=== PATIENT | female | born 1935 | race Caucasian/White ===

== ENCOUNTER 2019-07-26 15:17 | Outpatient (CLI) | payer MEDICARE, SELFPAY ==
[2019-07-26 15:35] LABS: Basophils Absolute Auto 0.05 K/mm3 (0.00-0.10); Basophils Percent Auto 0.7 % (0.0-1.0); Eosinophils Absolute Auto 0.09 K/mm3 (0.02-0.50); Eosinophils Percent Auto 1.2 % (1.0-6.0); Hematocrit 42.6 % (35.0-42.0); Immature Granulocyte Absolute 0.02 K/mm3 (0.00-0.00); Immature Granulocyte Percent A 0.3 % (0.0-0.0); Lymphocytes Absolute Auto 1.91 K/mm3 (1.10-4.50); Mean Corpuscular HGB Conc 32.9 g/dL (32.0-36.0); Mean Corpuscular Hemoglobin 28.7 pg (27.0-31.0); Mean Corpuscular Volume 87.5 fL (78.0-102.0); Mean Platelet Volume 9.9 fl (9.2-11.8); Monocytes Absolute Auto 0.94 K/mm3 (0.10-0.90); Monocytes Percent Auto 12.3 % (2.0-11.0); Neutrophils Absolute Auto 4.6 K/mm3 (1.7-7.2); Neutrophils Percent Auto 60.5 % (50.0-70.0); Platelet Count Result 242 K/mm3 (150-420); Red Blood Count 4.87 M/mm3 (4.20-5.40); Red Cell Distribution Width 12.4 % (11.6-14.4); White Blood Count 7.7 K/mm3 (4.8-10.8)
[2019-07-26 15:52] LABS: Hemoglobin A1C 5.9 % (<5.7)
[2019-07-26 16:24] LABS: Alanine Aminotransferase 29 U/L (14-59); Albumin Level 3.8 g/dL (3.4-5.0); Alkaline Phosphatase 73 U/L (46-116); Aspartate Amino Transferase 21 U/L (15-37); Bilirubin,Total 0.4 mg/dL (0.00-1.00); Blood Urea Nitrogen 15 mg/dL (7-18); Calcium 9.3 mg/dL (8.5-10.1); Carbon Dioxide 30 mmol/L (21-32); Chloride 105 mmol/L (98-108); Cholesterol 197 mg/dL (0-200); Estimated Glomerular Filt Rate 60; Glucose 92 mg/dL (70-99); HDL Direct 51 mg/dL (40-60); LDL Cholesterol Calculated 123 mg/dL (<130); Osmolality Calculated 298 mOsm/kg (285-295); Sodium 144 mmol/L (136-145); Total Protein 7.5 g/dL (6.4-8.2); Triglycerides 115 mg/dL (0-150)
[2019-07-26 16:30] LABS: Thyroid Stimulating Hormone Reflex 1.35 u/IU/mL (0.36-3.74)
== END 2019-07-26 15:18 | disposition home or self-care (01) ==
LOC: CHSLAB 15:23
PROVIDERS: PCP Family Medicine; Visit Provider Family Medicine
DX: E11.9 Type 2 diabetes mellitus without complications (principal); R30.0 Dysuria; N39.0 Urinary tract infection, site not specified
CPT/HCPCS: 36415; 80053; 80061; 83036; 84443; 85025; 87086

== ENCOUNTER 2019-09-07 16:53 | Emergency (ER) | payer MEDICARE, SELFPAY ==
[2019-09-07 17:16] VITALS: BP 165/95; PULSE 95; RESP 18; TEMP 36.2; O2SAT 100
--- NOTE | 2019-09-07 17:49 | ECG_ITS ---
Measurements Intervals [place] Rate: 73 P: 53 MA: 158 QRS: 19 QRSD: 90 T: 26 QT: 387 QTc: 429 Interpretive Statements SINUS RHYTHM ATRIAL PREMATURE COMPLEXES BORDERLINE ECG Electronically Signed On 09-08-2019 8:16:07 CDT by Morgan Garibay D.O.
--- NOTE | 2019-09-07 17:57 | ED.WEAKNESS ---
HPI - Weakness General Chief complaint: Weakness Stated complaint: weak cant keep eyes open Source: patient Mode of arrival: ambulatory Limitations: no limitations History of Present Illness HPI Narrative: 83 y.o. began feeling lightheaded while cleaning out her kitchen cupboards, just after she had been bending over. Her blood sugar was 95. She sat down. l Shortly thereafter she had a mild headache and felt like she was going to faint. This lasted for a minute or two. She had a piece of candy and came to the e.d. She's wondering if she could have an infection. Her blood sugars tend to swing when she doesn't eat or has an infection. At 11 AM her glucose was 119. She denies associated symptoms of sweating, nausea, SOB, chest/neck/arm pressure/pain. She gets symptoms similar to this if she doesn't eat. She was told almost 20 years ago when this occurred that they were caused by a low blood sugar. She is quite fastidious about recording her blood sugars throughout the day, and staying on an eating schedule. She was diagnosed with and treated for a UTI on 07/25. She never took the Cipro because of concerns about possible side effects. Her symptoms of burning in the AM with urinating resolved. They have periodically recurred but she attributes them to eating ice cream before bed and her blood sugar being high. She has no hx of CVA, Htn, CAD, cancer, DM Related Data Home Medications Medication Instructions Recorded Confirmed No Home Medications 09/07/19 09/07/19 Allergies Allergy/AdvReac Type Severity Reaction Status Date / Time aspirin Allergy Intermediate Unknown Verified 07/26/19 14:48 codeine Allergy Intermediate Unknown Verified 07/26/19 14:48 Penicillins Allergy Intermediate Unknown Verified 07/26/19 14:48 iodine Allergy Unknown Unknown Verified 07/26/19 14:48 Sulfonamides Allergy Intermediate Unknown Uncoded 07/26/19 14:33 SULFA Allergy Unknown Unknown Uncoded 07/26/19 14:33 Review of Systems Constitutional: Constitutional: Denies chills and Denies fever(s) ENT: Denies vertigo Cardiovascular: Cardiovascular: Denies rapid heart rate and Denies slow heart rate Respiratory: Respiratory: Denies cough Gastrointestinal: Gastrointestinal: Denies abdominal pain, Denies diarrhea and Denies vomiting Musculoskeletal: Musculoskeletal: Denies myalgias Integumentary/Breasts: Skin/Breast: Denies rash Comments: Bleeding from her left nipple with minimal trauma ever since she poked her nipple with a fork 1.5 months ago. Neurologic: Denies numbness PMFSH Past Medical History Medical History Type 2 diabetes mellitus Surgical History Surgical History History of appendectomy Hx of cholecystectomy Social History Social History (Updated 09/08/19 @ 06:34 by Edu Arzate MD) Social History: Lives alone. Has children and grandchildren nearby. Smoking status: Never smoker Exam Const: General: healthy appearing and no acute distress; No ill appearing Orientation/consciousness: patient oriented x3 HENMT: Head: normal to inspection Mouth: Yes moist mucous membranes Eyes: Conjunctivae: conjunctivae normal Neck: Neck: no lymphadenopathy Chest: Chest palpation & inspection: normal inspection of the chest Resp: Auscultation: clear to auscultation bilaterally Cardio: Rate: regular rate Rhythm: regular rhythm Heart sounds: no murmurs GI: GI Palp: Yes Soft to palpation, No Tenderness to palpation present (GI), No Guarding due to palpation present (GI) and No Palpable mass present Back/Spine/Pelvis: Back: no CVA tenderness Skin: General skin exam: normal color Extrem: General: normal to inspection Psych: Mental Status: mental status grossly normal Affect: normal affect Course Course Emergency Course: No episodes in the E.D. Vital Signs Vital signs: Vital Signs Temperature 36.
[2019-09-07 18:46] LABS: Hematocrit 44.1 % (35.0-42.0); Hemoglobin 14.8 g/dL (11.7-13.8); Mean Corpuscular HGB Conc 33.6 g/dL (32.0-36.0); Mean Corpuscular Hemoglobin 29.1 pg (27.0-31.0); Mean Corpuscular Volume 86.8 fL (78.0-102.0); Mean Platelet Volume 10.2 fl (9.2-11.8); Platelet Count Result 209 K/mm3 (150-420); Red Blood Count 5.08 M/mm3 (4.20-5.40); Red Cell Distribution Width 12.1 % (11.6-14.4); White Blood Count 7.3 K/mm3 (4.8-10.8)
[2019-09-07 18:57] LABS: Magnesium 2.1 mg/dL (1.8-2.4)
[2019-09-07 19:06] LABS: Alanine Aminotransferase 23 U/L (14-59); Albumin Level 3.7 g/dL (3.4-5.0); Alkaline Phosphatase 73 U/L (46-116); Anion Gap 11.1 mmol/L (7-16); Aspartate Amino Transferase 18 U/L (15-37); Bilirubin,Total 0.4 mg/dL (0.00-1.00); Blood Urea Nitrogen 16 mg/dL (7-18); Calcium 9.2 mg/dL (8.5-10.1); Carbon Dioxide 30 mmol/L (21-32); Chloride 104 mmol/L (98-108); Estimated CRCL calculation 41 ml/min; Estimated Glomerular Filt Rate 58; Glucose 137 mg/dL (70-99); Osmolality Calculated 295 mOsm/kg (285-295); Potassium 4.1 mmol/L (3.5-5.1); Sodium 141 mmol/L (136-145); Total Protein 7.7 g/dL (6.4-8.2); Troponin I < 0.02 ng/mL (0.00-0.056)
[2019-09-07 19:07] LABS: Add Urine Microscopic? YES; Appearance Urine Clear (Clear); Bilirubin Urine Negative (Negative); Blood Urine Negative (Negative); Color Urine Yellow (Yellow); Glucose Urine UA Negative (Negative); Ketones Urine Negative (Negative); Leukocyte Esterase Ur Trace (Negative); Nitrate Urine Negative (Negative); Protein Urine Negative (Negative); Urobilinogen Urine 0.2 mg/dL (0.2-1.0)
[2019-09-07 19:13] LABS: Bacteria Urine Trace /hpf; RBC Urine None seen /hpf (0-2); Squamous Epithelial Cell Urine None seen /hpf (Few); WBC Urine 0-3 /hpf (0-3)
[2019-09-07 19:14] LABS: Mucus Urine None seen /lpf
[2019-09-07 19:14] LABS: Thyroid Stimulating Hormone 1.78 uIU/mL (0.36-3.74)
[2019-09-07 19:15] LABS: BNP 22 pg/mL (0-100)
[2019-09-07 19:41] VITALS: BP 152/85; PULSE 85; RESP 18; O2SAT 98
== END 2019-09-07 19:48 | disposition home or self-care (01) ==
PROVIDERS: Emergency Provider Family Medicine; PCP Family Medicine
DX: R42 Dizziness and giddiness (principal); E11.9 Type 2 diabetes mellitus without complications
CPT/HCPCS: 36415; 80053; 81001; 83735; 83880; 84443; 84484; 85027; 93005; 99283; 99284

== ENCOUNTER 2019-09-10 08:48 | Outpatient (CLI) | payer MEDICARE, SELFPAY ==
--- NOTE | ~2019-09-10 | MM_ITS ---
EXAMINATION: MM screening bobby BI w monique HISTORY: Screening mammogram TECHNIQUE: Craniocaudal and mediolateral oblique 3-D tomosynthesis images were obtained and synthetic 2-D images were generated. CAD analysis was submitted and interpreted. COMPARISON: No prior mammogram is available for comparison at this institution. BREAST PARENCHYMAL COMPOSITION: The breasts are heterogeneously dense, which may obscure small masses . FINDINGS: Occasional benign calcifications. There is no evidence of suspicious mass, calcification, o r architectural distortion to suggest malignancy in either breast. There has been no suspicious inter [place] change. IMPRESSION: 1. No mammographic evidence of malignancy. 2. Recommend routine screening mammography in one year. BI-RADS Category 2: Benign finding(s). Reviewed, dictated and finalized at location A.
== END 2019-09-10 08:49 | disposition home or self-care (01) ==
LOC: CHSIMG 08:50
PROVIDERS: PCP Nurse Practitioner Family; Visit Provider Nurse Practitioner Family
DX: Z12.31 Encounter for screening mammogram for malignant neoplasm of breast (principal)
CPT/HCPCS: 77063; 77067

== ENCOUNTER 2019-10-12 09:02 | Emergency (ER) | payer MEDICARE, SELFPAY ==
[2019-10-12 09:14] VITALS: BP 162/95; PULSE 97; RESP 16; TEMP 36.6; O2SAT 98
[2019-10-12 09:15] LABS: Glucose Point of Care 121 (65-105)
--- NOTE | 2019-10-12 09:18 | ECG_ITS ---
Measurements Intervals [place] Rate: 84 P: 25 ME: 146 QRS: 14 QRSD: 87 T: 21 QT: 356 QTc: 423 Interpretive Statements SINUS RHYTHM FREQUENT ATRIAL PREMATURE COMPLEXES DELAYED PRECORDIAL R/S TRANSITION BASELINE ARTIFACT- V6 ABNORMAL ECG Electronically Signed On 10-13-2019 7:15:42 CDT by Morgan Garibay D.O.
[2019-10-12 09:30] VITALS: BP 163/91; PULSE 91
[2019-10-12 09:32] VITALS: BP 173/94; PULSE 102
[2019-10-12 10:04] LABS: Hematocrit 45.7 % (35.0-42.0); Hemoglobin 14.9 g/dL (11.7-13.8); Mean Corpuscular HGB Conc 32.6 g/dL (32.0-36.0); Mean Corpuscular Hemoglobin 28.8 pg (27.0-31.0); Mean Corpuscular Volume 88.2 fL (78.0-102.0); Mean Platelet Volume 10.7 fl (9.2-11.8); Platelet Count Result 218 K/mm3 (150-420); Red Blood Count 5.18 M/mm3 (4.20-5.40); Red Cell Distribution Width 12.5 % (11.6-14.4)
[2019-10-12 10:20] LABS: Add Urine Microscopic? YES; Appearance Urine Clear (Clear); Bilirubin Urine Negative (Negative); Blood Urine Negative (Negative); Color Urine Yellow (Yellow); Glucose Urine UA Negative (Negative); Ketones Urine Negative (Negative); Leukocyte Esterase Ur Trace (Negative); Nitrate Urine Negative (Negative); Protein Urine Negative (Negative); Urobilinogen Urine 0.2 mg/dL (0.2-1.0); pH Urine 5.5 (5.0-8.0)
[2019-10-12 10:25] LABS: Bacteria Urine Trace /hpf; RBC Urine 0-2 /hpf (0-2); Squamous Epithelial Cell Urine Rare /hpf (Few); WBC Urine 0-3 /hpf (0-3)
[2019-10-12 10:41] LABS: Alanine Aminotransferase 23 U/L (14-59); Albumin Level 3.8 g/dL (3.4-5.0); Alkaline Phosphatase 80 U/L (46-116); Anion Gap 12.1 mmol/L (7-16); Aspartate Amino Transferase 21 U/L (15-37); Bilirubin,Total 0.5 mg/dL (0.00-1.00); Blood Urea Nitrogen 17 mg/dL (7-18); Carbon Dioxide 29 mmol/L (21-32); Chloride 102 mmol/L (98-108); Estimated CRCL calculation 36 ml/min; Estimated Glomerular Filt Rate 60; Glucose 112 mg/dL (70-99); Osmolality Calculated 290 mOsm/kg (285-295); Potassium 4.1 mmol/L (3.5-5.1); Sodium 139 mmol/L (136-145); Total Protein 8.2 g/dL (6.4-8.2)
[2019-10-12 10:45] LABS: Troponin I < 0.02 ng/mL (0.00-0.056)
--- NOTE | 2019-10-12 11:01 | ED.GENADULT ---
HPI - General Adult General Chief complaint: Unspecified Stated complaint: high blood sugar Source: patient and family Mode of arrival: ambulatory Limitations: no limitations History of Present Illness HPI narrative: this is an 83-year-old female that presents with some dizziness non vertigo, with no sinus congestion or pressure no chest pain no shortness of breath no nausea vomiting or abdominal pain. The patient was outdoors doing some yd work and felt dizzy did not pass out and currently having some dizzy spells with some ambulating well with no dysuria no flank pain no fever chills. Onset (ago): hour(s) Radiation: non-radiation Severity: mild Pain Consistency: intermittent Relieving factors: none Exacerbating factors: none Associated symptoms: denies other symptoms Treatments prior to arrival: none Related Data Allergies Allergy/AdvReac Type Severity Reaction Status Date / Time aspirin Allergy Intermediate Unknown Verified 09/16/19 13:22 codeine Allergy Intermediate Unknown Verified 09/16/19 13:22 Penicillins Allergy Intermediate Unknown Verified 09/16/19 13:22 iodine Allergy Unknown Unknown Verified 09/16/19 13:22 Sulfonamides Allergy Intermediate Unknown Uncoded 09/16/19 13:22 SULFA Allergy Unknown Unknown Uncoded 09/16/19 13:22 Review of Systems Review of Systems: All systems reviewed & are unremarkable except as noted in HPI and below PMFSH Past Medical History Medical History BMI 28.0-28.9,adult Dysuria Eustachian tube dysfunction Type 2 diabetes mellitus Surgical History Surgical History History of appendectomy Hx of cholecystectomy Social History Social History Social History: Lives alone. Has children and grandchildren nearby. Smoking status: Never smoker Tobacco type: cigarettes Alcohol intake: never Substance use: never Substance use type: does not use Gender identity (if verbalized by the patient): Female Exam Const: General: no acute distress and alert Orientation/consciousness: patient oriented x3 HENMT: Head: normal to inspection and contusion Eyes: Conjunctivae: conjunctivae normal Pupils: Equal, round and reactive pupils present Neck: Neck: normal visual inspection and no lymphadenopathy Chest: Chest palpation & inspection: normal inspection of the chest and abnormal inspection of the chest Resp: Effort & Inspection: normal respiratory effort Auscultation: clear to auscultation bilaterally Cardio: Rate: regular rate Rhythm: abnormal rhythm GI: Percussion: Yes normal to percussion : General: Yes no CVA tenderness Back/Spine/Pelvis: Back: no CVA tenderness Skin: General skin exam: normal color Rashes: no rashes Extrem: General: normal to inspection Psych: Mental Status: mental status grossly normal Course Course Emergency Course: Patient currently stable dizziness has resolved patient his blood pressure is some elevated with a a elevated heart rate, explained that her labs were unremarkable that her EKG showed some premature supraventricular complexes and explained that she needs to start on beta-kelle and to follow-up with her primary care physician for possible cardiology referral. Vital Signs Vital signs: Vital Signs Temperature 36.6 C 10/12/19 09:14 Pulse Rate 97 10/12/19 09:14 Respiratory Rate 16 10/12/19 09:14 Blood Pressure 162/95 H 10/12/19 09:14 Pulse Oximetry 98 10/12/19 09:14 Temperature 36.6 C 10/12/19 09:14 Pulse Rate 102 H 10/12/19 09:32 Respiratory Rate 16 10/12/19 09:14 Blood Pressure 173/94 H 10/12/19 09:32 Pulse Oximetry 98 10/12/19 09:14 Medical Decision Making Vital Signs Vital Signs: Vital Signs Temperature 36.6 C 10/12/19 09:14 Pulse Rate 97 10/12/19 09:14 Respiratory Rate 16 10/12/19 09:14 Blood Pressure
[2019-10-12 11:07] VITALS: BP 156/77; PULSE 94; RESP 20; TEMP 36.8; O2SAT 98
[2019-10-12 11:12] VITALS: BP 160/77; PULSE 91; RESP 16; TEMP 36.6; O2SAT 98
== END 2019-10-12 11:17 | disposition home or self-care (01) ==
PROVIDERS: Emergency Provider Emergency Medicine; PCP Nurse Practitioner Family
DX: I49.8 Other specified cardiac arrhythmias (principal)
CPT/HCPCS: 36415; 80053; 81001; 84484; 85027; 93005; 99283; 99284

== ENCOUNTER 2019-11-08 08:59 | Outpatient (CLI) | payer MEDICARE, SELFPAY ==
--- NOTE | 2019-11-28 12:37 | WPDHOLTEREM ---
Holter/Event Monitor Holter/Event Monitor Date of procedure: 11/08/19 Procedure Type: 48 hour holter monitor Indications: PAC's Conclusion: 1. 48 hour holter monitor on 11/08/19. 2. Predominant rhythm is sinus rhythm. HR range 58-122 bpm; average HR 78 bpm. 3. There are 18,132 premature supraventricular complexes, 1,674 supraventricular coupletes, 5,709 supraventricular bigeminy and 12,557 supraventricular trigeminy. There are 428 short runs of atrial tachycardia, fastest at 138 bpm and longest lasting 9 beats. 4. There are 102 premature ventricular complexes and 1 ventricular couplet. No ventricular tachycardia. 5. No sinoatrial or atrioventricular blocks. No significant pauses greater than 2 seconds. 6. No symptoms available for correlation.
== END 2019-11-08 09:00 | disposition home or self-care (01) ==
PROVIDERS: PCP Nurse Practitioner Family; Visit Provider Internal Medicine Cardiovascular Disease
DX: I49.1 Atrial premature depolarization (principal)
CPT/HCPCS: 93225; 93226

== ENCOUNTER 2019-12-19 14:48 | Outpatient (CLI) | payer MEDICARE, SELFPAY ==
--- NOTE | 2019-12-19 14:57 | ECHO_ITS ---
Patient Info Name: Elizabeth Urbano Age: 83 years : 1935 Gender: Female Ht: 64 in Wt: 170 lbs BSA: 1.89 m2 HR: 95 bpm BP: 142 / 91 mmHg Technical Quality: Good Exam Date: 12/19/2019 3:10 PM Exam Location: [facility] Patient Status: Outpatient Admit Date: 12/19/2019 Staff Ordering Physician: Morgan Garibay DO Assistant County Engineer: Linh Rhoades RDCS Attending Provider: Morgan Garibay DO Referring Physician: Phoenix MORSE; Exam Type: CA echo doppler color flow Study Info Indications I49.1 - Atrial premature depolarization Complete two-dimensional, color flow and Doppler transthoracic echocardiogram is performed. Summary 1. Complete two-dimensional, color flow and Doppler transthoracic echocardiogram is performed. 2. Left ventricular chamber dimension is normal. 3. Ventricular septum is sigmoid shaped. No LVOT obstruction. 4. Left ventricular systolic function is normal, estimated at 60-65%. 5. The left ventricular diastolic function is grade I diastolic dysfunction. 6. E/e' 9 is minimally elevated. 7. Global longitudinal strain is abnormal at -15.5%. 8. There is mild mitral valve regurgitation. 9. There is mild to moderate tricuspid valve regurgitation. 10. No pulmonary hypertension, estimated pulmonary arterial systolic pressure is 35 mmHg. 11. There is trace pulmonic regurgitation. Left Ventricle E/e' 9 is minimally elevated. Global longitudinal strain is abnormal at -15.5%. Ventricular septum is sigmoid shaped. No LVOT obstruction. Left ventricular chamber dimension is normal. Left ventricular systolic function is normal, estimated at 60-65%. The left ventricular diastolic function is grade I diastolic dysfunction. Right Ventricle Right ventricular chamber dimension is normal. Right ventricular systolic function is normal. Left Atria Left atrial chamber dimension is normal. Right Atria Right atrial chamber dimension is normal. Aortic Valve The aortic valve is trileaflet. There is no aortic valve stenosis. There is no aortic valve regurgitation. Pulmonic Valve There is trace pulmonic regurgitation. Mitral Valve There is no mitral valve stenosis. There is mild mitral valve regurgitation. Tricuspid Valve There is mild to moderate tricuspid valve regurgitation. No pulmonary hypertension, estimated pulmonary arterial systolic pressure is 35 mmHg. Pericardium/Pleural There is no pericardial effusion. Inferior Vena Cava Normal inferior vena cava with >50% collapse upon inspiration consistent with normal right atrial pressure, 5 mmHg. Aorta The aortic root size at the sinus of Valsalva is normal. Left Ventricular Outflow Tract Name Value Normal LVOT 2D LVOT Diameter 1.9 cm LVOT Doppler LVOT Peak Gradient 6 mmHg LVOT Mean Gradient 3 mmHg LVOT VTI 24 cm LVOT VTI/AV VTI Ratio 0.9 LVOT Stroke Volume 71 ml LVOT CO 6.0 l/min LVOT CI 3.2 l/min/m2 P
== END 2019-12-19 14:49 | disposition home or self-care (01) ==
LOC: ANHCARD 14:49
PROVIDERS: PCP Nurse Practitioner Family; Visit Provider Internal Medicine Cardiovascular Disease
DX: I49.1 Atrial premature depolarization (principal); I34.0 Nonrheumatic mitral (valve) insufficiency; I36.1 Nonrheumatic tricuspid (valve) insufficiency
CPT/HCPCS: 93306

== ENCOUNTER 2020-09-18 09:44 | Emergency (ER) | payer MEDICARE, SELFPAY ==
--- NOTE | ~2020-09-18 | XR_ITS ---
EXAMINATION: XR chest 2V DATE: 09/18/2020 10:47 INDICATION: Chest TECHNIQUE: Frontal and lateral views of the chest are obtained COMPARISON: 04/30/2018 FINDINGS: The lungs are free of acute opacities. There is no pleural effusion or pneumothorax. The ca rdiomediastinal silhouette is normal. There is moderate thoracic spondylosis. IMPRESSION: 1. No acute cardiopulmonary abnormality. Reviewed, dictated and finalized at location B.
[2020-09-18 09:45] VITALS: BP 160/79; PULSE 95; RESP 15; TEMP 37.2; O2SAT 95
--- NOTE | 2020-09-18 10:03 | ECG_ITS ---
Measurements Intervals [place] Rate: 87 P: 47 [place]: 157 QRS: 67 QRSD: 90 T: 8 QT: 360 QTc: 435 Interpretive Statements SINUS RHYTHM ATRIAL COUPLET AND ATRIAL PREMATURE COMPLEXES DELAYED PRECORDIAL R/S TRANSITION BORDERLINE ST-T WAVE ABNORMALITY- INFERIOR LEADS BASELINE WANDER- I, III, AVR, AVL, AVF BORDERLINE ECG Electronically Signed On 09-18-2020 13:10:11 CDT by Morgan Garibay D.O.
[2020-09-18 10:27] LABS: Basophils Absolute Auto 0.04 K/mm3 (0.00-0.10); Basophils Percent Auto 0.6 % (0.0-1.0); Eosinophils Absolute Auto 0.09 K/mm3 (0.02-0.50); Eosinophils Percent Auto 1.5 % (1.0-6.0); Hematocrit 41.8 % (35.0-42.0); Hemoglobin 14.1 g/dL (11.7-13.8); Immature Granulocyte Absolute 0.02 K/mm3 (0.00-0.00); Immature Granulocyte Percent A 0.3 % (0.0-0.0); Lymphocytes Absolute Auto 1.16 K/mm3 (1.10-4.50); Lymphocytes Percent Auto 18.8 % (18.0-42.0); Mean Corpuscular HGB Conc 33.7 g/dL (32.0-36.0); Mean Corpuscular Hemoglobin 29.2 pg (27.0-31.0); Mean Corpuscular Volume 86.5 fL (78.0-102.0); Mean Platelet Volume 9.8 fl (9.2-11.8); Monocytes Percent Auto 9.7 % (2.0-11.0); Neutrophils Absolute Auto 4.3 K/mm3 (1.7-7.2); Neutrophils Percent Auto 69.1 % (50.0-70.0); Platelet Count Result 223 K/mm3 (150-420); Red Blood Count 4.83 M/mm3 (4.20-5.40); Red Cell Distribution Width 12.2 % (11.6-14.4); White Blood Count 6.2 K/mm3 (4.8-10.8)
[2020-09-18 10:41] LABS: D Dimer 0.27 mg/L (0.19-0.50)
[2020-09-18 11:14] LABS: Albumin Level 3.6 g/dL (3.4-5.0); Alkaline Phosphatase 78 U/L (46-116); Anion Gap 10 mmol/L (8-16); Aspartate Amino Transferase 17 U/L (15-37); Bilirubin,Total 0.4 mg/dL (0.00-1.00); Calcium 8.9 mg/dL (8.5-10.1); Carbon Dioxide 28 mmol/L (21-32); Chloride 105 mmol/L (98-108); Estimated Glomerular Filt Rate > 60; Glucose 146 mg/dL (70-99); Potassium 3.7 mmol/L (3.5-5.1); Sodium 143 mmol/L (136-145); Total Protein 7.6 g/dL (6.4-8.2)
[2020-09-18 12:32] LABS: Alanine Aminotransferase 25 U/L (14-59); Blood Urea Nitrogen 17 mg/dL (7-18); Osmolality Calculated 300 mOsm/kg (285-295)
[2020-09-18 12:46] LABS: Add Urine Microscopic? NO; Appearance Urine Clear (Clear); Bilirubin Urine Negative (Negative); Blood Urine Negative (Negative); Color Urine Light Yellow (Yellow); Glucose Urine UA Negative (Negative); Ketones Urine Negative (Negative); Leukocyte Esterase Ur Negative LEU/UL (Negative); Nitrate Urine Negative (Negative); Protein Urine Negative (Negative); Specific Grav Ur <= 1.005 (1.010-1.020); Urobilinogen Urine 0.2 mg/dL (0.2-1.0)
[2020-09-18 12:48] LABS: NT Pro B Type Natriuretic Pept 113 pg/mL (0-450)
--- NOTE | 2020-09-18 12:57 | ED.CHESTPAIN ---
HPI - Chest Pain General Source: patient Mode of arrival: ambulatory Limitations: no limitations History of Present Illness HPI narrative: Patient comes in after having brief palpitations at home. She noticed her heart beating after she drank down a bottle of ice water from the refrigerator. She never had any shortness of breath or chest pain, or other symptoms. The palpitations lasted no longer than 5 minutes, and resolved. She has never had anything that sounds like angina, or any chest pain. She has not had shortness of breath with exercise. MD complaint: other (palpitations ) Pertinent past history: other (none significant) Onset (ago): minute(s) Onset: during rest Severity: mild Quality: other (no tightness, no SOB, no pain, no discomfort. ) Relieving factors: other (spontaneous relief) Exacerbating factors: nothing Associated symptoms: other (no other symptoms) Related Data Home Medications Medication Instructions Recorded Confirmed No Home Medications 09/18/20 09/18/20 Allergies Allergy/AdvReac Type Severity Reaction Status Date / Time Penicillins Allergy Intermediate Hives Verified 09/18/20 10:29 iodine Allergy Unknown Hives Verified 09/18/20 10:29 Sulfa (Sulfonamide Allergy Unknown Verified 09/18/20 10:29 Antibiotics) aspirin AdvReac Intermediate Gastrointestinal Verified 09/18/20 10:29 Upset codeine AdvReac Intermediate Nausea Verified 09/18/20 10:29 Review of Systems Review of Systems: ROS unobtainable: Yes unobtainable due to medical condition Constitutional: Constitutional: Reports no additional constitutional complaints Eyes: Eyes: Reports no additional eye complaints ENT: Reports system reviewed and no additional complaints, except as documented Cardiovascular: Cardiovascular: Reports no additional cardiovascular complaints Respiratory: Respiratory: Reports no additional respiratory complaints Gastrointestinal: Gastrointestinal: Reports no additional gastrointestinal complaints Genitourinary: Genitourinary: Reports no additional female genitourinary complaints Musculoskeletal: Musculoskeletal: Reports no additional musculoskeletal complaints Integumentary/Breasts: Comments: states she has had recurrent bleeding from left nipple for the last year, and a small wound on the nipple there. Neurologic: Reports system reviewed and no additional complaints, except as documented Psychiatric: Psychiatric: Reports no additional psychiatric complaints Endocrine: Endocrine: Reports no additional endocrine complaints Hematologic/Lymphatic: Hematologic/Lymphatic: Reports no additional hematologic/lymphatic complaints Allergic/Immunologic: Allergic/Immunologic: Reports no additional allergic/immunologic complaints PMFSH Past Medical History Medical History BMI 28.0-28.9,adult Dysuria Eustachian tube dysfunction Type 2 diabetes mellitus Surgical History Surgical History History of appendectomy Hx of cholecystectomy Family History Family History (Updated 09/18/20 @ 13:35 by Alvaro Perkins MD) Other Family history non-contributory Social History Social History Social History: Lives alone. Has children and grandchildren nearby. Smoking status: Never smoker Tobacco type: cigarettes Alcohol intake: never Substance use: never Substance use type: does not use Gender identity (if verbalized by the patient): Female Exam Const: General: cooperative, healthy appearing, no acute distress, alert and awake Nutritional Appearance: average body habitus Orientation/consciousness: oriented to person Limitations: no limitations HENMT: Head: normal to inspection and atraumatic Ears: hearing grossly normal bilaterally and external ears normal General nose exam: Normal external nose present Face and sinus: normal facia
[2020-09-18 13:21] VITALS: BP 126/75; PULSE 70; O2SAT 96
== END 2020-09-18 13:25 | disposition home or self-care (01) ==
PROVIDERS: Emergency Provider Emergency Medicine; PCP Nurse Practitioner Family
DX: R00.2 Palpitations (principal); N63.20 Unspecified lump in the left breast, unspecified quadrant
CPT/HCPCS: 36415; 71046; 80053; 81003; 83735; 83880; 84484; 85025; 85380; 93005; 99283; 99284

== ENCOUNTER 2020-10-01 09:31 | Outpatient (CLI) | payer MEDICARE, SELFPAY ==
--- NOTE | ~2020-10-01 | MMUS_ITS ---
CORRECTED RE[place] [facility] [place] EXAMINATION: MM diagnostic bobby BI, US breast LT limited HISTORY: Left nipple discharge TECHNIQUE: Craniocaudal, mediolateral, and mediolateral oblique 3-D tomosynthesis images of the breasts were performed and synthetic 2-D images were generated. CAD analysis was submitted and interpreted. High resolution limited left breast ultrasound was performed. COMPARISON: 09/10/2019 BREAST PARENCHYMAL COMPOSITION: The breasts are heterogeneously dense, which may obscure small masses. FINDINGS: MAMMOGRAPHIC FINDINGS: Left breast: There is an 8 mm round, obscured, equal density mass in the subareolar aspect of the left breast. Right breast: There is no evidence of suspicious mass, calcification, or architectural distortion to suggest malignancy. There has been no suspicious interval change. ULTRASOUND: There is a 7 mm round, isoechoic mass in the subareolar aspect of the left breast with posterior acoustic enhancement and no internal vascularity. IMPRESSION: 1. Subareolar left breast mass. 2. Ultrasound-guided biopsy is recommended. BI-RADS category 4, suspicious findings. Reviewed, dictated and finalized at location A. MTDD IMPRESSION: 1. Subareolar left breast mass. 2. Ultrasound-guided biopsy is recommended. BI-RADS category 4, suspicious findings.
== END 2020-10-01 09:32 | disposition home or self-care (01) ==
LOC: CHSIMG 09:36
PROVIDERS: PCP Nurse Practitioner Family; Visit Provider Nurse Practitioner Family
DX: N63.20 Unspecified lump in the left breast, unspecified quadrant (principal); N64.52 Nipple discharge
CPT/HCPCS: 76642; 77062; 77066; G0279

== ENCOUNTER 2020-10-07 13:33 | Emergency (ER) | payer MEDICARE, SELFPAY ==
[2020-10-07 13:55] VITALS: BP 152/102; PULSE 72; RESP 16; TEMP 36.6; O2SAT 98
[2020-10-07 14:00] LABS: Glucose Point of Care 110 mg/dl (65-105)
--- NOTE | 2020-10-07 15:01 | ED.WEAKNESS ---
HPI - Weakness General Chief complaint: Recheck/Abnormal Lab/Rx Stated complaint: low blood sugar issues Time Seen by Provider: 10/07/20 14:30 Source: patient Mode of arrival: ambulatory Limitations: no limitations History of Present Illness HPI Narrative: Elizabeth come in after presenting to the hospital for a breast biopsy. She was forced to wait for quite some time for the procedure in a fasting state. During that time, she did not feel well, and felt she was getting weak and hypoglycemic. She was developing a presyncopal state. She has had issues with fasting hypoglycemia multiple times in the past. Her blood glucose was found to be 58 and she was taken to ER for evaluation. She was given something to eat, and a few minutes later her glucose was 110 after some pudding. The total time of weakness was about 15-20 minutes which spontaneously resolved after eating pudding. MD Complaint: generalized weakness Onset (ago): minute(s) Duration: now resolved Location: generalized Severity: mild Relieving factors: evening Exacerbating factors: other (fasting state) Related Data Home Medications Medication Instructions Recorded Confirmed No Home Medications 09/18/20 10/07/20 Allergies Allergy/AdvReac Type Severity Reaction Status Date / Time Penicillins Allergy Intermediate Hives Verified 09/23/20 10:51 iodine Allergy Unknown Hives Verified 09/23/20 10:51 Sulfa (Sulfonamide Allergy Unknown Verified 09/23/20 10:51 Antibiotics) aspirin AdvReac Intermediate Gastrointestinal Verified 09/23/20 10:51 Upset codeine AdvReac Intermediate Nausea Verified 09/23/20 10:51 Review of Systems Constitutional: Constitutional: Reports no additional constitutional complaints Eyes: Eyes: Reports no additional eye complaints ENT: Reports system reviewed and no additional complaints, except as documented Cardiovascular: Cardiovascular: Reports no additional cardiovascular complaints Respiratory: Respiratory: Reports no additional respiratory complaints Gastrointestinal: Gastrointestinal: Reports no additional gastrointestinal complaints Genitourinary: Genitourinary: Reports no additional female genitourinary complaints Musculoskeletal: Musculoskeletal: Reports no additional musculoskeletal complaints Integumentary/Breasts: Skin/Breast: Reports system reviewed and no additional complaints, except as docu Neurologic: Reports system reviewed and no additional complaints, except as documented Psychiatric: Psychiatric: Reports no additional psychiatric complaints Endocrine: Endocrine: Reports no additional endocrine complaints Hematologic/Lymphatic: Hematologic/Lymphatic: Reports no additional hematologic/lymphatic complaints Allergic/Immunologic: Allergic/Immunologic: Reports no additional allergic/immunologic complaints PMFSH Past Medical History Medical History BMI 28.0-28.9,adult Dysuria Eustachian tube dysfunction Type 2 diabetes mellitus Surgical History Surgical History History of appendectomy Hx of cholecystectomy Family History Family History Other Family history non-contributory Social History Social History Social History: Lives alone. Has children and grandchildren nearby. Smoking status: Never smoker Tobacco type: cigarettes Alcohol intake: never Substance use: never Substance use type: does not use Gender identity (if verbalized by the patient): Female Exam Const: General: no acute distress Orientation/consciousness: patient oriented x3 HENMT: Head: normal to inspection Ears: external ears normal and TM's normal bilaterally General nose exam: Normal external nose present Mouth: Yes Normal oral and palatal mucosa present Throat: posterior oropharynx normal Eyes: Con
[2020-10-07 15:08] LABS: Glucose Point of Care 118 mg/dl (65-105)
[2020-10-07 15:11] LABS: Add Urine Microscopic? YES; Appearance Urine Clear (Clear); Bilirubin Urine Negative (Negative); Blood Urine Negative (Negative); Color Urine Light Yellow (Yellow); Glucose Urine UA Negative (Negative); Ketones Urine Negative (Negative); Leukocyte Esterase Ur Trace LEU/UL (Negative); Nitrate Urine Negative (Negative); Protein Urine Negative (Negative); Specific Grav Ur <= 1.005 (1.010-1.020); Urobilinogen Urine 0.2 mg/dL (0.2-1.0); pH Urine 5.5 (5.0-8.0)
[2020-10-07 15:16] LABS: RBC Urine 0-2 /hpf (0-2); Squamous Epithelial Cell Urine Few /hpf (Few)
[2020-10-07 15:17] LABS: Bacteria Urine 1+ /hpf
[2020-10-07 15:21] VITALS: PULSE 70; RESP 14; O2SAT 100
== END 2020-10-07 15:22 | disposition home or self-care (01) ==
PROVIDERS: Emergency Provider Emergency Medicine; PCP Nurse Practitioner Family
DX: E11.649 Type 2 diabetes mellitus with hypoglycemia without coma (principal)
CPT/HCPCS: 81001; 82948; 87086; 99282; 99283

== ENCOUNTER 2020-10-21 13:08 | Outpatient (CLI) | payer MEDICARE, SELFPAY ==
--- NOTE | ~2020-10-21 | MMUS_ITS ---
US breast biopsy LT w image, MM post biopsy diagnostic LT EXAMINATION: US GUIDED NEEDLE BIOPSY WITH V ACUUM ASSISTANCE DATE: 10/21/2020 14:54 CDT INDICATION: Left breast mass seen on prior examination. Ultrasound-guided core biopsy is requested t o evaluate for malignancy. TECHNIQUE AND FINDINGS: The risks and potential benefits of the procedure were discussed with the patient, and written inform ed consent was obtained. After sterile preparation of the left breast, 1% lidocaine was utilized for local anesthesia. 1% lidocaine with epinephrine was used for deep anesthesia. A 10G vacuum-assisted biopsy gun needle was advanced through to the outer edge of the region of inter est from a subareolar approach utilizing sonographic guidance. A total of three tissue core samples were obtained through the lesion. An Inrad tissue marker clip was then placed at the biopsy site. He mostasis was achieved. The patient tolerated procedure well and there was no evidence of immediate complication. The patien t was given verbal instructions partly is from the department. Left breast mammograms to document ti ssue marker clip placement. The tissue samples were submitted to surgical pathology for histologic an alysis. IMPRESSION: 1. Successful ultrasound-guided vacuum-assisted biopsy of left breast mass with tissue marker placem ent. Please refer to pathology report for histologic analysis. Reviewed, dictated and finalized at location A. IMPRESSION: 1. Successful ultrasound-guided vacuum-assisted biopsy of left breast mass wit h tissue marker placement. Please refer to pathology report for histologic anal ysis.
== END 2020-10-21 13:09 | disposition home or self-care (01) ==
LOC: CHSIMG 13:10
PROVIDERS: PCP Nurse Practitioner Family; Visit Provider Nurse Practitioner Family
DX: C50.112 Malignant neoplasm of central portion of left female breast (principal); Z17.0 Estrogen receptor positive status [ER+]
CPT/HCPCS: 19083; 77065; 88305; 88342; A4648

== ENCOUNTER 2021-01-01 11:50 | Outpatient (CLI) | payer MEDICARE, SELFPAY ==
[2021-01-01 12:45] LABS: Alanine Aminotransferase 33 U/L (14-59); Albumin Level 3.6 g/dL (3.4-5.0); Alkaline Phosphatase 79 U/L (46-116); Anion Gap 7 mmol/L (8-16); Aspartate Amino Transferase 27 U/L (15-37); Bilirubin,Total 0.7 mg/dL (0.00-1.00); Blood Urea Nitrogen 14 mg/dL (7-18); Carbon Dioxide 31 mmol/L (21-32); Chloride 106 mmol/L (98-108); Estimated Glomerular Filt Rate > 60; Glucose 111 mg/dL (70-99); Osmolality Calculated 299 mOsm/kg (285-295); Potassium 4.3 mmol/L (3.5-5.1); Sodium 144 mmol/L (136-145); Total Protein 7.3 g/dL (6.4-8.2)
== END 2021-01-01 11:51 | disposition home or self-care (01) ==
LOC: CHSLAB 11:54
PROVIDERS: PCP Nurse Practitioner Family
DX: C50.912 Malignant neoplasm of unspecified site of left female breast (principal); Z17.0 Estrogen receptor positive status [ER+]
CPT/HCPCS: 36415; 80053

== ENCOUNTER 2021-01-24 10:24 | Outpatient (CLI) | payer MEDICARE, SELFPAY ==
[2021-01-24 12:16] LABS: SARS-CoV-2 RNA PCR Negative (Negative)
== END 2021-01-24 10:25 | disposition home or self-care (01) ==
LOC: CHSLAB 10:29
PROVIDERS: PCP Nurse Practitioner Family; Visit Provider Nurse Practitioner Family
DX: Z20.822 Contact with and (suspected) exposure to COVID-19 (principal)
CPT/HCPCS: C9803; U0003; U0005

== ENCOUNTER 2021-04-30 12:22 | Outpatient (CLI) | payer MEDICARE, SELFPAY ==
--- NOTE | ~2021-04-30 | DEXA_ITS ---
Bone Density Report Name: SANDY ESPINOZA Age: 85 Sex: Female Ethnicity: White Date of : 1935 Indication: postmenopausal; screening for osteoporosis; height loss; cancer; Referring Provider: JOSE, CHARLOTTE Goff Study: Bone densitometry was performed. Exam Date: April 30, 2021 Accession number: [id number] Bone Density: Region BMD T-score Z-score Classification AP Spine(L1, L2, L4) 1.006 -0.3 2.6 Normal Femoral Neck (Left) 0.411 -3.9 -1.5 Osteoporosis Total Hip (Left) 0.667 -2.3 0.0 Osteopenia Femoral Neck (Right) 0.424 -3.8 -1.3 Osteoporosis Total Hip (Right) 0.636 -2.5 -0.2 Osteoporosis Femoral Neck Mean 0.417 -3.9 -1.4 Osteoporosis Total Hip Mean 0.652 -2.4 -0.1 Osteopenia World Health Organization criteria for BMD impression classify patients as: Normal (T-score at or above -1.0), Osteopenia (T-score between -1.0 and -2.5), or Osteoporosis (T-score at or below -2.5). 10-year Fracture Risk: FRAX not reported because: Some T-score for Spine Total or Hip Total or Femoral Neck at or below -2.5 Clinical Information Provided by Patient: Has the following medical conditions: Cancer Patient maximum height was 65 Menopause Age: 46 No regular weight bearing exercise Onset of menses at age 16 Impression: The patient has osteoporosis, based on the Left Femoral Neck T-score. Discussion: INCREASED RISK OF FRACTURE. BONE DENSITY IS UNDESIRABLY LOW AT ONE OR MORE SKELETAL SITES, CONSISTENT WITH POSTMENOPAUSAL OSTEOPOROSIS. This patient's lowest T-score meets the World Health Organization's (WHO) criteria for osteoporosis at one or more sites (T-score -2.5 or below). In untreated patients, the risk of osteoporotic fracture increases approximately two-fold for each 1.0 SD decrease in T-score. Low bone density is not the only risk factor for fracture; also consider factors such as patient's age, frailty or poor health, risk of falling, risk of injury, previous osteoporotic fracture, family history of osteoporosis, cigarette smoking, low body weight, etc. Not everyone with low bone mineral density has osteoporosis; osteomalacia and other metabolic bone disorders should also be considered. Patients who have osteoporosis should be evaluated for specific diseases and conditions (secondary causes) that may cause or contribute to bone loss. The [place] [employer]ocr[employer] (AACE) and National Osteoporosis Foundation (NOF) recommend pharmacologic intervention for all postmenopausal women whose T-score is in this range. The patient should follow a healthful lifestyle (good nutrition with adequate calcium and vitamin D, and appropriate weight-bearing exercise). Follow-Up: Consider a repeat BMD and Vertebral Fracture Assessment (VFA) exam in 2 years or sooner if medically
== END 2021-04-30 12:23 | disposition home or self-care (01) ==
LOC: CHSIMG 12:25
PROVIDERS: PCP Nurse Practitioner Family; Visit Provider Internal Medicine Medical Oncology
DX: C50.012 Malignant neoplasm of nipple and areola, left female breast (principal); Z17.0 Estrogen receptor positive status [ER+]; Z13.820 Encounter for screening for osteoporosis; Z79.811 Long term (current) use of aromatase inhibitors
CPT/HCPCS: 77080

== ENCOUNTER 2021-06-28 16:53 | Emergency (ER) | payer MEDICARE, SELFPAY ==
--- NOTE | ~2021-06-28 | XR_ITS ---
EXAMINATION: XR chest 1V portable Exam Date/Time: 06/28/2021 17:45 CDT CLINICAL HISTORY: syncope episode today. hx of LT breast cancer Comparison: 09/18/2020 RESULT: Lines, tubes, and devices: None. Lungs and pleura: Clear. Cardiomediastinal silhouette: Stable cardiomediastinal silhouette. Other: No acute osseous or upper abdominal finding. IMPRESSION: No acute cardiopulmonary process. Reviewed, dictated and finalized at location K.
--- NOTE | ~2021-06-28 | CT_ITS ---
EXAMINATION: CT brain wo con DATE: 06/28/2021 17:56 INDICATION: Syncopal episode, fall, confusion. TECHNIQUE: Computed tomography (CT) of the head was performed without intravenous contrast. The dose- length product was 605.33 mGy-cm. COMPARISON: 04/30/2018 FINDINGS: No acute intracranial hemorrhage or extra-axial fluid collection. No hydrocephalus, mass, or herniation. No acute ischemic infarct. Unremarkable dural venous sinus attenuation. No acute osseous abnormality. Small retention cyst or polyp in the sphenoid sinus, otherwise the aerated spaces are clear. Mild atrophy and chronic white matter change. Bilateral basal ganglia calcification. Atherosclerotic intracranial arterial calcification. IMPRESSION: No acute intracranial process. Reviewed, dictated and finalized at location K.
--- NOTE | ~2021-06-28 | CT_ITS ---
EXAMINATION: CT cervical spine wo con DATE: 06/28/2021 17:56 INDICATION: Syncopal episode today, fall, confusion. TECHNIQUE: Computed tomography (CT) of the cervical spine was performed without intravenous contrast. Automated exposure control and iterative reconstruction technique were employed. The dose-length pro duct was 159.62 mGy-cm. COMPARISON: None FINDINGS: Counting reference: Craniocervical junction. 7 cervical type vertebral bodies. Anatomic Variants: None. Alignment: Alignment is anatomic. Craniocervical junction: Moderate degenerative change. Osseous structures/fracture: No evidence of a lytic or blastic process in the visualized spine. N o evidence of acute or chronic fracture. Cervical soft tissues: The paraspinal soft tissues planes are maintained. 3.7 cm left inferior thy roid lobe mass. Apical pleural thickening/scarring. Degenerative changes: Moderate degenerative disc disease at C6-7, where there is moderate central can al stenosis and severe right neural foraminal narrowing. IMPRESSION: No acute fracture or traumatic malalignment in the cervical spine. 3.7 cm left thyroid mass, recommen d outpatient thyroid ultrasound for further evaluation. Reviewed, dictated and finalized at location K. IMPRESSION: No acute fracture or traumatic malalignment in the cervical spine. 3.7 cm left thyroid mass, recommend outpatient thyroid ultrasound for further evaluation.
[2021-06-28 17:10] VITALS: BP 131/60; PULSE 69; RESP 16; TEMP 36.6; O2SAT 100
--- NOTE | 2021-06-28 17:11 | ECG_ITS ---
Measurements Intervals [place] Rate: 61 P: 43 MT: 149 QRS: 29 QRSD: 92 T: 45 QT: 404 QTc: 409 Interpretive Statements SINUS RHYTHM WITH OCCASIONAL SUPRAVENTRICULAR PREMATURE COMPLEXES ABNORMAL ECG COMPARED TO ECG 09/18/2020 10:08:24 NO SIGNIFICANT CHANGES Electronically Signed On 06-29-2021 17:49:42 CDT by Carlos Alvarado M.D.
[2021-06-28 17:31] LABS: Base Excess ABG 1.9 mmol/L (0-2); HCO3 ABG 25.3 mmol/L (23-29); Oxygen Content ABG 19.7 %vol (16.0-22.0); Oxygen Saturation ABG 95.3 % (95-97); Oxyhemoglobin 94.7 % (94-100); PCO2 ABG 35.8 mmHg (35-45); PO2 ABG 70.9 mmHg (75-85); Total Hemoglobin 14.8 g/dL (12.0-18.0); pH ABG 7.47 (7.35-7.45)
[2021-06-28 17:32] LABS: Device ROOM AIR; Modified Allen's Test Pass; Site Drawn RIGHT RADIAL
--- NOTE | 2021-06-28 17:32 | PC.NURSE ---
daughter has arrived and states patient has a a known cognative decline and confusion per baseline. patient has had several episodes of emesis today and wasnt feeling good yesterday either during her visit. patient has history of TIA's and recent lumpectomy to the left breast.
[2021-06-28 17:34] LABS: Basophils Absolute Auto 0.03 K/mm3 (0.00-0.10); Basophils Percent Auto 0.3 % (0.0-1.0); Eosinophils Absolute Auto 0.01 K/mm3 (0.02-0.50); Eosinophils Percent Auto 0.1 % (1.0-6.0); Hematocrit 43.1 % (35.0-42.0); Hemoglobin 14.2 g/dL (11.7-13.8); Immature Granulocyte Absolute 0.04 K/mm3 (0.00-0.00); Immature Granulocyte Percent A 0.4 % (0.0-0.0); Lymphocytes Absolute Auto 0.98 K/mm3 (1.10-4.50); Mean Corpuscular HGB Conc 32.9 g/dL (32.0-36.0); Mean Corpuscular Hemoglobin 28.9 pg (27.0-31.0); Mean Corpuscular Volume 87.8 fL (78.0-102.0); Mean Platelet Volume 10.5 fl (9.2-11.8); Monocytes Absolute Auto 0.99 K/mm3 (0.10-0.90); Monocytes Percent Auto 9.1 % (2.0-11.0); Neutrophils Absolute Auto 8.8 K/mm3 (1.7-7.2); Neutrophils Percent Auto 81.1 % (50.0-70.0); Platelet Count Result 242 K/mm3 (150-420); Red Blood Count 4.91 M/mm3 (4.20-5.40); Red Cell Distribution Width 12.4 % (11.6-14.4); White Blood Count 10.9 K/mm3 (4.8-10.8)
[2021-06-28 17:50] LABS: Alanine Aminotransferase 28 U/L (14-59); Albumin Level 3.6 g/dL (3.4-5.0); Alkaline Phosphatase 83 U/L (46-116); Anion Gap 8 mmol/L (8-16); Aspartate Amino Transferase 27 U/L (15-37); Bilirubin,Total 0.6 mg/dL (0.00-1.00); Blood Urea Nitrogen 15 mg/dL (7-18); Calcium 9.1 mg/dL (8.5-10.1); Carbon Dioxide 28 mmol/L (21-32); Chloride 103 mmol/L (98-108); Estimated Glomerular Filt Rate > 60; Glucose 130 mg/dL (70-99); Osmolality Calculated 290 mOsm/kg (285-295); Potassium 3.6 mmol/L (3.5-5.1); Salicylate 0.7 mg/dL (2.8-20.0); Sodium 139 mmol/L (136-145); Total Protein 7.5 g/dL (6.4-8.2); Troponin I 5.9 ng/L (0.00-60.4)
[2021-06-28 17:54] LABS: Lactic Acid Reflex 1.7 mmol/L (0.4-2.0)
[2021-06-28] MEDS: SODIUM CHLORIDE 0.9% IV 500 ML 999 ML IV CONT (17:54)
[2021-06-28 17:55] LABS: Ethanol < 3 mg/dL (0-6)
[2021-06-28 17:56] LABS: Acetaminophen < 2 ug/mL (10-30)
[2021-06-28] MEDS: ONDANSETRON INJ 4 MG/2 ML VIAL IV PUSH (18:14)
[2021-06-28] MEDS: PANTOPRAZOLE SODIUM IV 40 MG VIAL IV PUSH (18:14)
--- NOTE | 2021-06-28 19:05 | ED.AMS ---
HPI - Altered Mental Status General Chief Complaint: Altered Mental Status Stated Complaint: AMB Time Seen by Provider: 06/28/21 16:55 Source: patient, family, EMS and RN notes reviewed Mode of arrival: EMS Limitations: no limitations History of Present Illness complaint: confusion (pt has the dementia.) Onset (ago): hour(s) (4) Timing confirmed by: family member Severity: mild Consistency of symptoms: unknown (pt has known dementia and was at status in the ED.) Associated symptoms: nausea/vomiting Related Data Allergies Allergy/AdvReac Type Severity Reaction Status Date / Time Penicillins Allergy Intermediate Hives Verified 11/24/20 11:13 iodine Allergy Unknown Hives Verified 11/24/20 11:13 Sulfa (Sulfonamide Allergy Unknown Verified 11/24/20 11:13 Antibiotics) aspirin AdvReac Intermediate Gastrointestinal Verified 11/24/20 11:13 Upset codeine AdvReac Intermediate Nausea Verified 11/24/20 11:13 Review of Systems Review of Systems: All systems reviewed & are unremarkable except as noted in HPI and below PMFSH Past Medical History Medical History (Updated 06/28/21 @ 19:32 by Wan Lopez MD) BMI 28.0-28.9,adult Dysuria Eustachian tube dysfunction Type 2 diabetes mellitus Surgical History Surgical History History of appendectomy Hx of cholecystectomy Family History Family History Other Family history non-contributory Social History Social History Social History: Lives alone. Has children and grandchildren nearby. Smoking status: Former smoker Tobacco type: cigarettes Alcohol intake: never Substance use: never Substance use type: does not use Gender identity (if verbalized by the patient): Female Spiritual care concerns: No Exam Const: General: no acute distress and alert Limitations: other limitations (pt has the dementia but was cooperative and pleasant in the ED.) HENMT: Head: normal to inspection Ears: external ears normal, TM's normal bilaterally and EAC's normal General nose exam: Normal external nose present and Normal nares present Face and sinus: normal facial exam Mouth: Yes moist mucous membranes Eyes: Conjunctivae: conjunctivae normal Pupils: Equal, round and reactive pupils present EOM: EOMs intact bilaterally Neck: Neck: normal visual inspection and no lymphadenopathy Chest: Chest palpation & inspection: normal inspection of the chest Resp: Effort & Inspection: normal respiratory effort Auscultation: clear to auscultation bilaterally Cardio: Rate: regular rate Rhythm: regular rhythm GI: GI Palp: Yes Soft to palpation and No Tenderness to palpation present (GI) Auscultation: normal bowel sounds : General: Yes bladder normal to palpation and Yes no CVA tenderness Back/Spine/Pelvis: Back: no CVA tenderness Skin: General skin exam: normal color Rashes: no rashes Neuro: General: patient oriented x3, moves all extremities, no meningeal signs, no focal motor deficits and CN's II-XI intact bilaterally Extrem: General: normal to inspection and no pedal edema Psych: Appearance: grossly normal and well kempt Mental Status: mental status grossly normal Attitude: cooperative Thought content: Yes other (known dementia.) Course Course Emergency Course: Pt was stable in the ED. no acute GI loss. Reevaluation(s) Reevaluation #1: VSS Date: 06/28/21 Time: 17:51 Vital Signs Vital signs: Vital Signs Temperature 36.6 C 06/28/21 17:10 Pulse Rate 69 06/28/21 17:10 Respiratory Rate 16 06/28/21 17:10 Blood Pressure 131/60 06/28/21 17:10 Pulse Oximetry 100 06/28/21 17:10 Temperature 36.6 C 06/28/21 17:10 Pulse Rate 69 06/28/21 17:10 Respiratory Rate 16 06/28/21 17:10 Blood Pressure 131/60 06/28/21 17:10 Pulse Oximetry 100 06/28/21 17:10
[2021-06-28 19:18] LABS: Appearance Urine Clear (Clear); Bilirubin Urine Negative (Negative); Color Urine Yellow (Yellow); Glucose Urine UA Negative (Negative); Ketones Urine Negative (Negative); Leukocyte Esterase Ur Trace LEU/UL (Negative); Nitrate Urine Negative (Negative); Protein Urine Trace (Negative); Specific Grav Ur >= 1.030 (1.010-1.020); Urobilinogen Urine 0.2 mg/dL (0.2-1.0)
[2021-06-28 19:24] LABS: Add Urine Microscopic? YES; Bacteria Urine 2+ /hpf; Blood Urine Trace-Intact (Negative); Squamous Epithelial Cell Urine Rare /hpf (Few); WBC Urine 16-20 /hpf (0-3)
[2021-06-28 19:26] LABS: Amphetamine Screen Urine Negative (Negative); Barbiturate Screen Urine Negative (Negative); Benzodiazepines Screen Urine Negative (Negative); Cannabinoid Screen Urine Negative (Negative); Cocaine Screen Urine Negative (Negative); Methadone Screen Urine Negative (Negative); Opiate Screen Urine Negative (Negative); Phencyclidine Screen Urine Negative (Negative)
[2021-06-28 20:30] VITALS: BP 139/76; PULSE 68; RESP 18; TEMP 36.8; O2SAT 97
== END 2021-06-28 20:40 | disposition home or self-care (01) ==
PROVIDERS: Emergency Provider Emergency Medicine; PCP Nurse Practitioner Family
DX: K52.9 Noninfective gastroenteritis and colitis, unspecified (principal); R41.82 Altered mental status, unspecified; N39.0 Urinary tract infection, site not specified; Z87.891 Personal history of nicotine dependence
CPT/HCPCS: 36415; 36600; 70450; 71045; 72125; 80053; 80307; 81001; 82805; 83605; 84484; 85025; 87086; 93005; 96361; 96365; 96375; 99284; C9113; J0696; J2405; J7040

== ENCOUNTER 2021-08-17 12:05 | Emergency (ER) | payer MEDICARE, SELFPAY ==
--- NOTE | ~2021-08-17 | CT_ITS ---
EXAMINATION: CT brain wo con DATE: 08/17/2021 13:02 INDICATION: Status post fall. TECHNIQUE: Computed tomography (CT) of the head was performed without intravenous contrast. The dose- length product was 529.67 mGy-cm. Automated exposure control and iterative reconstruction technique w ere employed. COMPARISON: CT dated 06/28/2021 FINDINGS: Brain parenchymal volume is normal for age. There are are bilateral basal ganglia calcifica tions. There are scattered mild periventricular and subcortical white matter changes, most likely rel ated to small vessel ischemic disease (microangiopathy). There is intracranial atherosclerosis. No ve ntriculomegaly or midline shift. Paranasal sinuses and mastoids are pneumatized. No acute intracrania l hemorrhage, infarction, mass or mass effect. No depressed skull fractures. IMPRESSION: 1. No acute intracranial abnormality. 2: Chronic age-related findings. Reviewed, dictated and finalized at location A.
--- NOTE | ~2021-08-17 | CT_ITS ---
EXAMINATION: CT cervical spine wo con DATE: 08/17/2021 13:02 INDICATION: Loss of balance and nausea post fall with head injury TECHNIQUE: Computed tomography (CT) of the cervical spine was performed without intravenous contrast. Automated exposure control and iterative reconstruction technique were employed. The dose-length pro duct was 218.66 mGy-cm. COMPARISON: 06/28/2021 FINDINGS: Alignment is normal. Moderate osteoarthritis at the atlantoaxial articulation. Vertebral body heights are normal. No fracture. Moderate disc height loss at C5-C6, C6-C7 and T2-T3 and mild disc height lo ss at C4-C5.. Mild mucosal thickening the left sphenoid and bilateral ethmoid sinuses. 3.5 cm left th yroid mass. Cervical soft tissues are otherwise unremarkable. Mild biapical pleural-parenchymal scarr ing. The following disc levels are specifically discussed: C2-C3: The disc does not extend beyond the endplate margin. There is no uncovertebral joint osteoarth ritis. There is mild left and severe right facet joint osteoarthritis. There is minimal neural forami nal stenosis. There is no central canal stenosis. C3-C4: Disc is bulging. There is mild bilateral uncovertebral joint osteoarthritis. There is mild lef t and severe right facet joint osteoarthritis. There is mild neural foraminal stenosis. There is mild central canal stenosis. C4-C5: The disc does not extend beyond the endplate margin. There is mild bilateral uncovertebral rosaura nt osteoarthritis. There is mild right and severe left facet joint osteoarthritis. There is mild left neural foraminal stenosis. There is no central canal stenosis. C5-C6: Small posterior disc osteophyte complex. There is mild left and severe right uncovertebral rosaura nt osteoarthritis. There is mild to moderate right and severe left facet joint osteoarthritis. There is mild bilateral neural foraminal stenosis. There is mild central canal stenosis. C6-C7: Small posterior disc osteophyte complex. There is severe bilateral uncovertebral joint osteoar thritis. There is mild left and mild to moderate right facet joint osteoarthritis. There is mild left and mild to moderate right neural foraminal stenosis. There is mild central canal stenosis. C7-T1: The disc does not extend beyond the endplate margin. There is no uncovertebral joint osteoarth ritis. There is mild bilateral facet joint osteoarthritis. There is no neural foraminal stenosis. The re is no central canal stenosis. IMPRESSION: 1. Mild to moderate cervical spondylosis. No acute osseous abnormality. 2. 3.5 cm left thyroid mass. Consider thyroid ultrasound for risk stratification. Reviewed, dictated and finalized at location B. IMPRESSION: 1. Mild to moderate cervical spondylosis. No acute osseous abnormality. 2. 3.5 cm left thyroid mass. Consider thyroid ultrasound for risk stratificatio n.
[2021-08-17 12:10] VITALS: BP 169/84; PULSE 100; RESP 20; TEMP 36.4; O2SAT 100
--- NOTE | 2021-08-17 12:26 | ED.HEATRA ---
HPI - Head Injury General Chief complaint: Head Injury Stated complaint: FELL AND HIT WALL Time Seen by Provider: 08/17/21 12:29 Source: patient Mode of arrival: ambulatory Limitations: no limitations History of Present Illness HPI Narrative: 85-year-old female with no significant past medical history and not on any medications, fell forwards on her face while trying to plug in the vacuum tank car cleaner and presents to the ER with -- abrasions over her forehead and nose bridge -- bleeding from both nostrils -- Nausea without any vomiting no loss of consciousness. no headache. No neck pain. no other injuries noted. Patient was ambulatory at the scene and on presentation to ER Patient is not on any antithrombotics or anticoagulants Complaint: other Onset (ago): minute(s) ( 20 minutes prior to arrival) Mechanism of Injury: other ( fell forwards while trying to plug in her vacuum tank car cleaner) Place: home Loss of Consciousness: no Location of injury: face Severity: mild Radiation: none Other Injuries: none Associated symptoms: denies other symptoms Related Data Home Medications Medication Instructions Recorded Confirmed No Home Medications 08/17/21 08/17/21 Allergies Allergy/AdvReac Type Severity Reaction Status Date / Time Penicillins Allergy Intermediate Hives Verified 08/17/21 12:23 iodine Allergy Unknown Hives Verified 08/17/21 12:23 Sulfa (Sulfonamide Allergy Unknown Verified 08/17/21 12:23 Antibiotics) aspirin AdvReac Intermediate Gastrointestinal Verified 08/17/21 12:23 Upset codeine AdvReac Intermediate Nausea Verified 08/17/21 12:23 Review of Systems Review of Systems: All systems reviewed & are unremarkable except as noted in HPI and below Constitutional: Constitutional: Reports as per HPI and Reports no additional constitutional complaints Eyes: Eyes: Reports as per HPI and Reports no additional eye complaints ENT: Reports epistaxis Cardiovascular: Cardiovascular: Reports as per HPI and Reports no additional cardiovascular complaints Respiratory: Respiratory: Reports as per HPI and Reports no additional respiratory complaints Gastrointestinal: Gastrointestinal: Reports as per HPI and Reports no additional gastrointestinal complaints Genitourinary: Genitourinary: Reports no additional female genitourinary complaints and Reports as per HPI Musculoskeletal: Musculoskeletal: Reports no additional musculoskeletal complaints Comments: right knee pain Integumentary/Breasts: Comments: abrasions over her forehead and nose bridge Neurologic: Reports system reviewed and no additional complaints, except as documented and Reports as per HPI Psychiatric: Psychiatric: Reports no additional psychiatric complaints and Reports as per HPI Endocrine: Endocrine: Reports no additional endocrine complaints and Reports as per HPI Hematologic/Lymphatic: Hematologic/Lymphatic: Reports no additional hematologic/lymphatic complaints and Reports as per HPI Allergic/Immunologic: Allergic/Immunologic: Reports no additional allergic/immunologic complaints and Reports as per HPI PMFSH Past Medical History Medical History (Updated 08/17/21 @ 13:47 by Vrenon Mckeon MD) BMI 28.0-28.9,adult Dysuria Eustachian tube dysfunction Type 2 diabetes mellitus Surgical History Surgical History History of appendectomy Hx of cholecystectomy Family History Family History Other Family history non-contributory Social History Social History Social History: Lives alone. Has children and grandchildren nearby. Smoking status: Former smoker Tobacco type: cigarettes Alcohol intake: never Substance use: never Substance use type: does not use Gender identity (if verbalized by the patient): Female Spiritual care concerns: No
[2021-08-17 13:12] LABS: Add Urine Microscopic? YES; Appearance Urine Clear (Clear); Bilirubin Urine Negative (Negative); Blood Urine Negative (Negative); Color Urine Light Yellow (Yellow); Glucose Urine UA Negative (Negative); Ketones Urine Negative (Negative); Leukocyte Esterase Ur Trace (Negative); Nitrate Urine Negative (Negative); Protein Urine Negative (Negative); Urobilinogen Urine 0.2 mg/dL (0.2-1.0); pH Urine 5.5 (5.0-8.0)
[2021-08-17 13:17] LABS: Bacteria Urine Trace /hpf; RBC Urine None seen /hpf (0-2); Squamous Epithelial Cell Urine Few /hpf (Few); WBC Urine 0-3 /hpf (0-3)
[2021-08-17 13:18] LABS: Basophils Absolute Auto 0.05 K/mm3 (0.00-0.10); Basophils Percent Auto 0.7 % (0.0-1.0); Eosinophils Absolute Auto 0.09 K/mm3 (0.02-0.50); Eosinophils Percent Auto 1.2 % (1.0-6.0); Hemoglobin 14.4 g/dL (11.7-13.8); Immature Granulocyte Absolute 0.02 K/mm3 (0.00-0.00); Immature Granulocyte Percent A 0.3 % (0.0-0.0); Lymphocytes Absolute Auto 1.52 K/mm3 (1.10-4.50); Mean Corpuscular HGB Conc 32.7 g/dL (32.0-36.0); Mean Corpuscular Hemoglobin 28.7 pg (27.0-31.0); Mean Corpuscular Volume 87.6 fL (78.0-102.0); Mean Platelet Volume 10.4 fl (9.2-11.8); Monocytes Absolute Auto 0.66 K/mm3 (0.10-0.90); Monocytes Percent Auto 9.1 % (2.0-11.0); Neutrophils Absolute Auto 4.9 K/mm3 (1.7-7.2); Neutrophils Percent Auto 67.7 % (50.0-70.0); Platelet Count Result 221 K/mm3 (150-420); Red Blood Count 5.02 M/mm3 (4.20-5.40); Red Cell Distribution Width 12.1 % (11.6-14.4); White Blood Count 7.2 K/mm3 (4.8-10.8)
[2021-08-17 13:35] LABS: Partial Thromboplastin Time 29.2 SEC (23.90-30.70); Prothrombin Time 10.9 Seconds (9.50-12.10)
[2021-08-17 13:37] LABS: Alanine Aminotransferase 18 U/L (14-59); Albumin Level 3.6 g/dL (3.4-5.0); Alkaline Phosphatase 95 U/L (46-116); Anion Gap 4 mmol/L (8-16); Aspartate Amino Transferase 16 U/L (15-37); Bilirubin,Total 0.5 mg/dL (0.00-1.00); Blood Urea Nitrogen 14 mg/dL (7-18); Calcium 9.5 mg/dL (8.5-10.1); Carbon Dioxide 31 mmol/L (21-32); Chloride 104 mmol/L (98-108); Estimated CRCL calculation 40 ml/min; Estimated Glomerular Filt Rate > 60; Glucose 101 mg/dL (70-99); Osmolality Calculated 288 mOsm/kg (285-295); Potassium 4.5 mmol/L (3.5-5.1); Sodium 139 mmol/L (136-145); Total Protein 7.7 g/dL (6.4-8.2)
[2021-08-17 13:52] VITALS: BP 153/73; PULSE 68; RESP 18; TEMP 36.6; O2SAT 98
== END 2021-08-17 13:56 | disposition home or self-care (01) ==
PROVIDERS: Emergency Provider Internal Medicine Critical Care Medicine; PCP Nurse Practitioner Family
DX: R22.1 Localized swelling, mass and lump, neck (principal); S09.90XA Unspecified injury of head, initial encounter; S00.81XA Abrasion of other part of head, initial encounter; W19.XXXA Unspecified fall, initial encounter; E11.9 Type 2 diabetes mellitus without complications; Z87.891 Personal history of nicotine dependence
CPT/HCPCS: 36415; 70450; 72125; 80053; 81001; 85025; 85610; 85730; 99284

== ENCOUNTER 2021-10-09 16:26 | Emergency (ER) | payer MEDICARE, SELFPAY ==
[2021-10-09 16:41] VITALS: BP 144/73; PULSE 90; RESP 18; TEMP 36.1; O2SAT 98
--- NOTE | 2021-10-09 16:57 | ECG_ITS ---
Measurements Intervals [place] Rate: 71 P: 29 [place]: 154 QRS: 25 QRSD: 89 T: 31 QT: 397 QTc: 432 Interpretive Statements SINUS RHYTHM CONSIDER ANTERIOR INFARCT, AGE INDETERMINATE BORDERLINE ST-T WAVE ABNORMALITY- INFERIOR LEADS BASELINE ARTIFACT- I, III, AVR, AVL, AVF ABNORMAL ECG Electronically Signed On 10-09-2021 17:18:32 CDT by Morgan Garibay D.O.
--- NOTE | 2021-10-09 17:08 | ED.GENADULT ---
HPI - General Adult General Chief complaint: Weakness Stated complaint: feeling faint earlier History of Present Illness HPI narrative: The patient is an 85-year-old woman who has felt lightheaded and nauseous today and wanted noon. She had a near syncopal episode this afternoon and felt very weak. Her main complaint now is nausea as her lightheadedness symptom is resolved. She is diabetic but her Accu-Cheks have been in the 90s today. No other major comorbidities. No chest pain or abdominal pain. No fevers or chills or diaphoresis or cough rhinorrhea nasal congestion. No motor or sensory deficits. Related Data Allergies Allergy/AdvReac Type Severity Reaction Status Date / Time Penicillins Allergy Intermediate Hives Verified 10/09/21 17:44 iodine Allergy Unknown Hives Verified 10/09/21 17:44 Sulfa (Sulfonamide Allergy Unknown Verified 10/09/21 17:44 Antibiotics) aspirin AdvReac Intermediate Gastrointestinal Verified 10/09/21 17:44 Upset codeine AdvReac Intermediate Nausea Verified 10/09/21 17:44 Review of Systems Review of Systems: All systems reviewed & are unremarkable except as noted in HPI and below Constitutional: Constitutional: Reports no additional constitutional complaints, Denies anorexia, Denies body ache(s), Denies chills, Denies excessive sweating, Reports fatigue, Denies fever(s), Denies frequent falls, Denies headache(s), Reports malaise and Denies poor appetite Eyes: Eyes: Reports no additional eye complaints, Denies blurry vision, Denies change in vision, Denies irritation, Denies itchy eyes and Denies photophobia ENT: Reports system reviewed and no additional complaints, except as documented, Reports Normal hearing present, Denies change in voice, Denies dysphagia, Denies vertigo, Reports dizziness, Denies ear discharge, Denies headache(s), Denies hearing loss, Denies hoarseness, Denies nasal congestion, Denies neck pain, Denies sinus pressure, Denies sore throat and Denies throat swelling Cardiovascular: Cardiovascular: Reports no additional cardiovascular complaints, Denies chest pain, Denies syncope, Denies rapid heart rate, Denies irregular heart rhythm, Denies leg edema, Denies dyspnea and Denies slow heart rate Respiratory: Respiratory: Reports no additional respiratory complaints, Denies cough, Denies dyspnea, Denies stridor and Denies wheezing Gastrointestinal: Gastrointestinal: Reports no additional gastrointestinal complaints, Denies abdominal pain, Denies melena, Denies hematochezia, Denies dysphagia, Denies diarrhea, Reports nausea and Denies vomiting Genitourinary: Genitourinary: Denies hematuria, Denies urinary frequency, Denies dysuria, Denies flank pain and Denies urinary urgency Musculoskeletal: Musculoskeletal: Reports no additional musculoskeletal complaints, Denies abnormal gait, Denies back pain, Denies myalgias, Denies arthralgias, Denies joint swelling, Denies limited range of motion, Denies muscle cramps, Denies muscle weakness, Denies neck pain and Denies numbness Integumentary/Breasts: Skin/Breast: Reports system reviewed and no additional complaints, except as docu, Denies breast pain, Denies change in pigmentation, Denies pruritus, Denies erythema and Denies wounds Neurologic: Reports system reviewed and no additional complaints, except as documented, Reports Normal hearing present, Denies Abnormal speech present, Denies abnormal gait, Denies confusion, Denies vertigo, Reports dizziness, Denies syncope, Denies frequent falls, Denies headache(s), Denies focal weakness, Denies numbness and Denies paresthesias Psychiatric: Psychiatric: Reports no additional psychiatric complaints and Denies confusion Endocrine: Endocrine: Reports no additional endocrine complaints, Denies cold intolerance, Denies excessive sweating, Denies fatigue and Denies heat intolerance Hematologic/Lymphatic: Hematologic/Lymphatic: Reports no additional hematologic/lymphatic complaints, Denies easy bleeding and David
[2021-10-09 17:19] LABS: Basophils Absolute Auto 0.04 K/mm3 (0.00-0.10); Basophils Percent Auto 0.5 % (0.0-1.0); Eosinophils Absolute Auto 0.01 K/mm3 (0.02-0.50); Eosinophils Percent Auto 0.1 % (1.0-6.0); Hematocrit 41.9 % (35.0-42.0); Hemoglobin 13.8 g/dL (11.7-13.8); Immature Granulocyte Absolute 0.02 K/mm3 (0.00-0.00); Immature Granulocyte Percent A 0.3 % (0.0-0.0); Lymphocytes Absolute Auto 0.99 K/mm3 (1.10-4.50); Lymphocytes Percent Auto 12.6 % (18.0-42.0); Mean Corpuscular HGB Conc 32.9 g/dL (32.0-36.0); Mean Platelet Volume 10.5 fl (9.2-11.8); Monocytes Absolute Auto 0.65 K/mm3 (0.10-0.90); Monocytes Percent Auto 8.3 % (2.0-11.0); Neutrophils Absolute Auto 6.1 K/mm3 (1.7-7.2); Neutrophils Percent Auto 78.2 % (50.0-70.0); Platelet Count Result 225 K/mm3 (150-420); Red Blood Count 4.76 M/mm3 (4.20-5.40); Red Cell Distribution Width 12.3 % (11.6-14.4); White Blood Count 7.8 K/mm3 (4.8-10.8)
[2021-10-09 17:38] LABS: Alanine Aminotransferase 18 U/L (14-59); Albumin Level 3.6 g/dL (3.4-5.0); Alkaline Phosphatase 90 U/L (46-116); Anion Gap 7 mmol/L (8-16); Aspartate Amino Transferase 15 U/L (15-37); Bilirubin,Total 0.6 mg/dL (0.00-1.00); Blood Urea Nitrogen 14 mg/dL (7-18); Calcium 8.8 mg/dL (8.5-10.1); Carbon Dioxide 27 mmol/L (21-32); Chloride 105 mmol/L (98-108); Estimated Glomerular Filt Rate 60; Glucose 124 mg/dL (70-99); Osmolality Calculated 289 mOsm/kg (285-295); Potassium 3.6 mmol/L (3.5-5.1); Sodium 139 mmol/L (136-145); Total Protein 7.5 g/dL (6.4-8.2)
[2021-10-09 17:44] LABS: Troponin I 5.5 ng/L (0.00-60.4)
[2021-10-09] MEDS: SODIUM CHLORIDE 0.9% IV 1,000 ML 999 ML IV CONT (17:45)
[2021-10-09] MEDS: METOCLOPRAMIDE HCL INJ 10 MG/2 ML VIAL IV PUSH (17:45)
[2021-10-09] MEDS: ONDANSETRON INJ 4 MG/2 ML VIAL IV PUSH (17:45)
[2021-10-09 17:54] LABS: Bilirubin Urine Negative (Negative); Color Urine Light Yellow (Yellow); Glucose Urine UA Negative (Negative); Ketones Urine Negative (Negative); Leukocyte Esterase Ur Trace LEU/UL (Negative); Nitrate Urine Negative (Negative); Protein Urine Negative (Negative); Specific Grav Ur >= 1.030 (1.010-1.020); Urobilinogen Urine 0.2 mg/dL (0.2-1.0); pH Urine 5.5 (5.0-8.0)
[2021-10-09 17:56] LABS: SARS-CoV-2 RNA PCR Negative (Negative)
[2021-10-09 18:03] LABS: Add Urine Microscopic? YES; Appearance Urine Slightly Cloudy (Clear); Bacteria Urine 1+ /hpf; Blood Urine Trace-lysed (Negative); Mucus Urine Heavy /lpf; RBC Urine 21-50 /hpf (0-2); Squamous Epithelial Cell Urine Moderate /hpf (Few); WBC Urine 0-3 /hpf (0-3)
[2021-10-09 19:05] VITALS: BP 144/74; PULSE 71
[2021-10-09 19:06] VITALS: BP 137/71; BP 140/78; PULSE 68; PULSE 75
[2021-10-09 19:36] VITALS: BP 152/86; PULSE 82; RESP 17; TEMP 36.6; O2SAT 97
== END 2021-10-09 19:48 | disposition home or self-care (01) ==
PROVIDERS: Emergency Provider Emergency Medicine; PCP Nurse Practitioner Family
DX: R11.0 Nausea (principal); R53.1 Weakness; Z20.822 Contact with and (suspected) exposure to COVID-19; E11.9 Type 2 diabetes mellitus without complications; Z87.891 Personal history of nicotine dependence
CPT/HCPCS: 36415; 80053; 81001; 84484; 85025; 93005; 96361; 96374; 96375; 99284; C9803; J2405; J2765; J7030; U0003; U0005

== ENCOUNTER 2023-02-06 11:17 | Outpatient (CLI) | payer MEDICARE, SELFPAY ==
[2023-02-06 11:37] LABS: Basophils Absolute Auto 0.05 K/mm3 (0.00-0.10); Basophils Percent Auto 0.8 % (0.0-1.0); Eosinophils Absolute Auto 0.09 K/mm3 (0.02-0.50); Eosinophils Percent Auto 1.4 % (1.0-6.0); Hematocrit 44.4 % (35.0-42.0); Hemoglobin 14.2 g/dL (11.7-13.8); Immature Granulocyte Absolute 0.02 K/mm3 (0.00-0.00); Immature Granulocyte Percent A 0.3 % (0.0-0.0); Lymphocytes Absolute Auto 1.66 K/mm3 (1.10-4.50); Lymphocytes Percent Auto 25.5 % (18.0-42.0); Mean Corpuscular Hemoglobin 28.6 pg (27.0-31.0); Mean Corpuscular Volume 89.3 fL (78.0-102.0); Mean Platelet Volume 9.7 fl (9.2-11.8); Monocytes Absolute Auto 0.74 K/mm3 (0.10-0.90); Monocytes Percent Auto 11.3 % (2.0-11.0); Neutrophils Percent Auto 60.7 % (50.0-70.0); Platelet Count Result 229 K/mm3 (150-420); Red Blood Count 4.97 M/mm3 (4.20-5.40); Red Cell Distribution Width 12.3 % (11.6-14.4); White Blood Count 6.5 K/mm3 (4.8-10.8)
[2023-02-06 11:39] LABS: Appearance Urine Clear (Clear); Bilirubin Urine Negative (Negative); Blood Urine Negative (Negative); Color Urine Yellow (Yellow); Glucose Urine UA Negative (Negative); Ketones Urine Negative (Negative); Leukocyte Esterase Ur Trace LEU/UL (Negative); Nitrate Urine Negative (Negative); Protein Urine Negative (Negative); Specific Grav Ur >= 1.030 (1.010-1.020); Urobilinogen Urine 0.2 mg/dL (0.2-1.0); pH Urine 5.5 (5.0-8.0)
[2023-02-06 11:44] LABS: Add Urine Microscopic? YES; RBC Urine 0-2 /hpf (0-2)
[2023-02-06 11:45] LABS: Bacteria Urine Trace /hpf; Squamous Epithelial Cell Urine Few /hpf (Few); WBC Urine 0-3 /hpf (0-3)
[2023-02-06 11:46] LABS: Hemoglobin A1C 5.8 % (<5.7)
[2023-02-06 11:47] LABS: Mucus Urine Moderate /lpf
[2023-02-06 12:35] LABS: Alanine Aminotransferase 23 U/L (14-59); Albumin Level 3.7 g/dL (3.4-5.0); Alkaline Phosphatase 90 U/L (46-116); Anion Gap 5 mmol/L (8-16); Aspartate Amino Transferase 18 U/L (15-37); Bilirubin,Total 0.5 mg/dL (0.00-1.00); Blood Urea Nitrogen 17 mg/dL (7-18); Calcium 9.1 mg/dL (8.5-10.1); Carbon Dioxide 33 mmol/L (21-32); Chloride 106 mmol/L (98-108); Estimated Glomerular Filt Rate 54; Free T4 Free Thyroxine 1.12 ng/dL (0.76-1.46); Glucose 106 mg/dL (70-99); Iron 52 ug/dL (50-170); Magnesium 2.2 mg/dL (1.8-2.4); NT Pro B Type Natriuretic Pept 93 pg/mL (0-450); Osmolality Calculated 299 mOsm/kg (285-295); Sodium 144 mmol/L (136-145); Thyroid Stimulating Hormone 1.83 uIU/mL (0.36-3.74); Total Protein 8.3 g/dL (6.4-8.2); Vitamin B12 281 pg/mL (193-986)
[2023-02-10 11:29] LABS: Vitamin D 25 Hydroxy 16 ng/mL (30-100)
== END 2023-02-06 11:18 | disposition home or self-care (01) ==
LOC: CHSLAB 11:20
PROVIDERS: PCP Nurse Practitioner Family; Visit Provider Nurse Practitioner Family
DX: E11.9 Type 2 diabetes mellitus without complications (principal); R41.0 Disorientation, unspecified; Z79.899 Other long term (current) drug therapy; R60.9 Edema, unspecified; R06.00 Dyspnea, unspecified
CPT/HCPCS: 36415; 80053; 81001; 82306; 82607; 83036; 83540; 83735; 83880; 84439; 84443; 85025

== ENCOUNTER 2023-02-23 08:33 | Outpatient (CLI) | payer MEDICARE, SELFPAY ==
--- NOTE | ~2023-02-23 | MR_ITS ---
MRI of the brain Clinical History: Memory loss Technique: Axial and sagittal T1-weighted images were acquired. These were followed by axial T2-weigh migue, diffusion weighted, gradient, and FLAIR images. Findings: There is no acute infarct, internal hemorrhage, or mass lesion. There are moderate to sever e chronic microvascular ischemic changes throughout the periventricular white matter bilaterally. Ventricles and subarachnoid spaces are unremarkable. Orbits are unremarkable. Paranasal sinuses and m astoid air cells are clear. Major intracranial flow voids are intact. Sagittal midline structures are intact. IMPRESSION: No intracranial hemorrhage, mass lesion, or acute infarct. Moderate to severe chronic microvascular ischemic change. Reviewed, dictated and finalized at location M. L ENGINEERING PROFESSOR
== END 2023-02-23 08:34 | disposition home or self-care (01) ==
LOC: CHSIMG 08:35
PROVIDERS: PCP Nurse Practitioner Family; Visit Provider Nurse Practitioner Family
DX: R41.0 Disorientation, unspecified (principal)
CPT/HCPCS: 70551

== ENCOUNTER 2023-11-09 09:23 | Outpatient (CLI) | payer MEDICARE, SELFPAY ==
--- NOTE | ~2023-11-09 | XR_ITS ---
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 The cardiomediastinal silhouette is within normal limits. There are no pleural effusions. There is no pneumothorax suspected. IMPRESSION: 1: NO ACUTE CARDIOPULMONARY DISEASE. Reviewed, dictated and finalized at location B.
== END 2023-11-09 09:24 | disposition home or self-care (01) ==
LOC: CHSIMG 09:25
PROVIDERS: PCP Family Medicine; Visit Provider Family Medicine
DX: A15.0 Tuberculosis of lung (principal)
CPT/HCPCS: 71046

== ENCOUNTER 2024-10-02 15:09 | Emergency (ER) | payer MEDICARE, OTHER, SELFPAY ==
[2024-10-02 15:10] VITALS: BP 142/66; PULSE 60; RESP 18; TEMP 36.4; O2SAT 99
--- OUTSIDE RECORDS SUMMARY | 2024-10-02 15:11 | XMS_ITS | Clinical Summary ---
Author Organization [facility] Address [facility] [place] [address] Care Team Providers Care Terrazzo Worker Apprentice Name Role Phone Unavailable Primary Care Provider Unavailabl e Social History Tobacco Use Types Packs/Day Years Used Date Smoking Tobacco: Never Assessed Comments Unknown Sex and Gender Information Value Date Recorded Sex Assigned at Not on file Legal Sex Female 1:58 PM CDT Gender Identity Not on file Sexual Orientation Not on file Plan of Treatment Health Maintenance Due Date Last Done Comments DTaP, Tdap and Td Vaccines ( 1 - Tdap) 12/26/1954 Pneumococcal Vaccine: 50+ Ye ars (1 of 1 - PCV) 1986 Zoster Vaccines (1 of 2) 1986 RSV Immunization or 60+ Years (1 - 1-dose 75+ series) 12/26/2011 COVID-19 Vaccine (2023-2 5 season) 2023 Meningococcal B Vaccine Aged Out No l onger eligible based on patient's age to complete this topic Meningococcal Vaccine Aged Out No oscar obdulio eligible based on patient's age to complete this topic RSV Immunizations Under 20 Months Aged Out No longer eligible based on patient's age to complete this topic
--- OUTSIDE RECORDS SUMMARY | 2024-10-02 15:11 | XMS_ITS ---
Author Organization [facility] Care Team Providers Care Top Installer Name Role Phone Shane Asher Unavailable Unavailable Ketty Gordillo Unavailable Unavailable Bernardo Wilde Unavailable Unavailable Carlos Nolasco Unavailable Unavaila ble Allergies and adverse reactions Code CodeSystem Substance Reaction Severity StartDate Concern Status TB Unknown 02/12/[address] Sulfa Antibiotics Unknown 02/12/2024 active 7984 RXNORM Penicillin Unknown 02/12/2024 active Iodide Unknown 02/12/[address] Fish and seafood Unknown 02/12/2024 a ctive 2670 RXNORM Codeine Unknown 02/12/2024 active 1191 RXNORM Aspirin Unknown 02/12/2024 active Care Team Name Role Address Phone Organization Dates Carlos Nolasco PCP [address] [place] [address], [address], [facility] (Office): : [facility] 02/12/2024 - present Shane Asher [address] [facility] [address], [place], [address], [place] (Office): [facility] [place] 02/12/2024 - present [place], [address], [place] (Office): : [facility] [place] 02/12/2024 - present Bernardo Wilde [address] [place], [address], [place] (Office): [facility] 02/12/2024 - present Goals Section Goals Description Status Target Date To Wash own face and hands after set up through next review Active 10/29/2024 To brush own teeth daily after set up through ne xt review Active 10/29/2024 To consume 50% or greater at all meals with verbal cues. Through review date Active 10/29/2024 To maintain eating with cueing/prompting through next review Active 10/29/2024 Minimize risk for injury from hot liquids. Activ e 10/29/2024 Minimize risk for skin breakdown through next re view date. Active 10/29/2024 Minimize/manage risk for falls Active 0 10/29/2024 Elizabeth to attain adequate n utritional status as evidenced by consuming at least75% all three meals daily through review date. Active 10/29/2024 Elizabeth will be able to comm unicate basic needs on a daily basis through review date. Active 10/29/2024 Elizabeth will be clean, dry, well-groomed through review date Active 10/29/2024 Elizabeth will be neat, clean and well groomed Act nieves 10/29/2024 Elizabeth will cooperate with care through next re view date Active 10/29/2024 Elizabeth will have no complic ations related to diabetes through the review date. Active 10/29/2024 Elizabeth will maintain accept able quality of life through next review Active 10/29/2024 Elizabeth will not have an int erruption in normal activities due to pain through next review Active 10/29/2024 Elizabeth will participate in activities of her choosing each week through the next review. Resident enjoys walking the halls and visiting with other residents. Resident is at times capable of small projects with oversight. Active 10/29/2024 Elizabeth will participate in care by performing simple adls through next review date. Active 10/29/2024 Elizabeth will remain free fro m any adverse side effects from antidepressant use through next review Active 10/29/2024 Elizabeth will remain safely in facility through n ext review Active 10/29/2024 Uche wishes will be honored thru next review Active 10/29/2024 Will adjust to facility as e videnced by coming out of room thru next review Active 10/29/2024 Will adjust to facility as e videnced by participating in activities thru next review Active 10/29/2024 Functional Status Code Name Recorded Time Value Entered By Chair/kdt-pf-hnese transfer 10/02/2024 Partial/moder ate assistance avelarde Eating 10/02/2024 Independent avelarde Feeding or Eating 10/02/2024 Supervision - Indicate the type of wheelch air or scooter used 10/02/2024 Not assessed avelarde Lying to sitting on side of bed 10/02/2024 Independe nt avelarde Oral hygiene 10/02/2024 Partial/moderate assistance avelarde Personal hygiene 10/02/2024 Independent avelarde Roll left and right 10/02/2024 Independent avelarde Shower/bathe self 10/01/2024 Dependent avelarde Sit to lying 10/02/2024 Independent avelarde Sit to stand 10/02/2024 Partial/moderate assistance avelarde Toilet transfer 10/02/2024 Independent avelarde Toileting hygiene 10/02/2024 Independent avelarde Walk 10 feet 10/02/2024 Independent avelarde Walk 150 feet 10/02/2024 Independent avelarde Wheel 150 feet 10/02/2024 Not assessed avelarde Immunizations Immunization Status Vaccine Details Vaccine Code CodeSystem Date Notes TB 2 Step Mantoux Skin Test aborted tuberculin skin test; unspecified formulation 98 CVX created date: 03/25/2024 consent date: 02/20/2024 Prevnar 20 cancelled Pneumococcal conjugate vaccine 20-valent (PCV20), polysaccharide [id number] conjugate, adjuvant, preservative free 216 CVX created date: 03/25/2024 consent date: 02/20/2024 SARS-COV-2 (COVID-19) Updated monovalent cancelled SARS-COV-2 (COVID-19) vaccine, mRNA, spike protein, LNP, preservative free, shruthi-sucrose, 30 mcg/0.3 mL dose 309 CVX created date: 06/08/2024 consent date: 02/20/2024 influenza, unspecified formulation cancelled influenza virus vaccine, unspecified formulation 88 CVX created date: 03/25/2024 consent date: 02/20/2024 Medications Section Medication Name Status Code CodeSystem Dose Route Frequency Admin Type Sig Text Start Date End Date Acetaminophen Oral Tablet 325 MG active 002783 RXNORM 2 tablet Oral as needed PRN Give 2 tablet by mouth every 4 hours as needed for mild pain 2023 - FLUoxetine HCl Oral Tablet 20 MG active 596385 RXNORM 20 mg Oral in the morning Routine Give 20 mg by mouth in the mornin g relate d to UNSPEC IFIED FADI IA, UNSPEC IFIED SEVERI TY, WITH AGITAT ION (F03.9 11) 2024 - UTI-Stat Oral Liquid active 30 ml Oral in the morning Routine Give 30 ml by mouth in the mornin g for dysuri a 2024 - Mental Status Section Date Assessment Total Score Description 07/31/2024 CAM 2 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 05/06/2024 BIMS 03 severe cognitiv e impairment CAM 2 Delirium indica migue PHQ-9 14 moderate depres pepito Problems Problem # Description Date of onset Resolved Date Code CodeSystem Concern Status 1 UNSPECIFIED SEVERE PROTEIN-CALORIE MALNUTRITION 08/22/[address] active 2 GENERALIZED ANXIETY DISORDER 06/13/[address] active 3 NAUSEA WITH VOMITING, UNSPECIFIED 04/29/2024 06/05/[address] completed 4 COVID-19 02/19/2024 03/26/[address] compl eted 5 UNSPECIFIED DEMENTIA, UNSPECIFIED SEVERITY, WITH AGITATION 02/14/[address] active 6 TYPE 2 DIABETES MELLITUS WITHOUT COMPLICATIONS 02/12/[address] active 7 UNSPECIFIED DEMENTIA, UNSPECIFIED SEVERITY, WITHOUT BEHAVIORAL DISTURBANCE, PSYCHOTIC DISTURBANCE, MOOD DISTURBANCE, AND ANXIETY 02/12/2024 02/14/[address] completed Reason for Referral No Reasons for Referral Entered Social History Social History Observation Description Start Date End Date Code Code System Current Smoking Status Tobacco smoking consumption unknown 900947544 SNOMED CT Sex Assigned At Female 1935 61823-8 [facility] Gender Identity Vital Signs Code Code System Vitals Name Values and Units Timing Information 26326-1 [facility] Pain Level Value=0.0 10/02/2024 57356-1 [facility] Weight Tkuyi=004.0 Units=Lbs 73089-6 [facility] O2 % BldC Oximetry Value=93.0 Units= % 08/14/2024 9279-1 [facility] Respiratory Rate Value=18.0 Units=/m in 08/14/2024 8867-4 [facility] Heart rate Value=86.0 Units=/min 8310-5 [facility] Body Temperature Value=97.1 Units= F 08/14/2024 8462-4 [facility] Blood Pressure-Diastolic Value=89 Un its=mmHg 08/14/2024 8480-6 [facility] Blood Pressure-Systolic Mfscb=091 Un its=mmHg 08/14/2024 8302-2 [facility] Height Value=61.0 Units=Inches 02/12/2024
--- OUTSIDE RECORDS SUMMARY | 2024-10-02 15:11 | XMS_ITS | Encounter Summary ---
Author Organization [facility] Address [facility] [place] [address] Care Team Providers Care Match Marker Name Role Phone Unavailable Primary Care Provider Unavailabl e Encounter Details Date Type Department Care Team (Late st Contact Info) Description 01/01/2017 Abstract [facility] CONVERSION [address] [place] [address] , Generic ConversionMD Social History Tobacco Use Types Packs/Day Years Used Date Smoking Tobacco: Never Assessed Comments Unknown Sex and Gender Information Value Date Recorded Sex Assigned at Not on file Legal Sex Female 1:58 PM CDT Gender Identity Not on file Sexual Orientation Not on file documented as of this encounter Plan of Treatment Not on file documented as of this encounter Procedures Procedure Name Priority Date/Time Associated Diagnosis Comments COMPREHENSIVE METABOLIC PANEL STAT 01/01/2017 3:57 PM CDT CBC W/DIFF AUTOMATED STAT 01/01/2017 3:57 PM CDT LIPASE STAT 01/01/2017 3:57 PM CDT documented in this encounter Results * LIPASE (01/01/2017 3:57 PM CDT) LIPASE 41 8.0 - 78.0 UNITS/L 01/01/2017 4:25 PM CDT [facility] SERUM OR PLASMA SPECIMEN / Unknown 01/01/2017 3:57 PM CDT 01/01/2017 4:03 PM CDT Generic Conversion Md [facility] Final R esult [facility] [address] [place] [address], * (ABNORMAL) COMPREHENSIVE METABOLIC PANEL (01/01/2017 3:57 PM CDT) [facility] GLUCOSE 103 83 - 110 MG/DL 01/01/2017 4:25 PM CDT [facility] BUN 16 9.8 - 20.1 MG/DL 01/01/2017 4:25 PM CDT [facility] CREATININE S/P/B 0.82 0.57 - 1.11 MG/DL 01/01/2017 4:25 PM CDT [facility] SODIUM S/P/B 142 136 - 145 MMOL/L 01/01/2017 4:25 PM CDT [facility] POTASSIUM S/P/B 3.3(L) 3.5 - 5.1 MMOL/L 01/01/2017 4:25 PM CDT [facility] CHLORIDE S/P/B 108(H) 98 - 107 MMOL/L 01/01/2017 4:25 PM CDT [facility] CO2 26.0 23 - 31 MMOL/L 01/01/2017 4:25 PM T [facility] ANION GAP 11.3 10.0 - 24.0 MMOL/L 01/01/2017 4:25 PM T [facility] OSMOLALITY (CALC) 285 271 - 290 MOSM/KG 01/01/2017 4:25 PM T [facility] CALCIUM S/P/B 9.5 8.4 - 10.2 MG/DL 01/01/2017 4:25 PM T [facility] BILIRUBIN TOTAL S/P/B 0.4 0.2 - 1.2 MG/DL 01/01/2017 4:25 PM T [facility] TOTAL PROTEIN S/P/B 7.3 6.4 - 8.3 G/DL 01/01/2017 4:25 PM CDT [facility] ALBUMIN S/P/B 3.9 3.4 - 4.8 G/DL 01/01/2017 4:25 PM CDT [facility] AST 16 5 - 34 U/L 01/01/2017 4:25 PM CDT [facility] ALT 14 6 - 55 U/L 01/01/2017 4:25 PM T [facility] ALKALINE PHOSPHATASE S/P/B 78 30 - 130 U/L 01/01/2017 4:25 PM CDT [facility] BUN CREATININE RATIO 19.5 6.0 - 26.0 01/01/2017 4:25 PM T [facility] A/G RATIO 1.1 1.1 - 1.9 RATIO 01/01/2017 4:25 PM T [facility] EGFR NON-AFR. AMER. >60 >60 ML/MIN/1.7 3 M2 01/01/2017 4:25 PM CDT [facility] Comment: GFR Reference Range:Kidney Failure - <15mL/min Chronic Kidney Disease - <60mL/min Normal Kidney Function - >60mL/min GFR calculation is not recommended forPatients less than 18 years or greater than70 years as per the national Kidney Foundation.If the patient is -[place], multiply results by 1.21 01/01/2017 3:57 PM CDT 01/01/2017 4:03 PM CDT us Generic Conversion Md [facility] Final R esult [facility] [address] [place] [address], [place] [phone] * (ABNORMAL) CBC W/DIFF AUTOMATED (01/01/2017 3:57 PM CDT) WBC 7.0 4.4 - 11.0 x10'3/uL 01/01/2017 4:07 PM CDT [facility] RBC 4.75 4.50 - 5.10 x10'6/uL 01/01/2017 4:07 PM T [facility] HGB 13.9 12.3 - 15.3 G/DL 01/01/2017 4:07 PM [facility] HCT 41.2 35.9 - 44.6 % 01/01/2017 4:07 PM T [facility] MCV 86.7 80.0 - 96.0 FL 01/01/2017 4:07 PM T [facility] MCH 29.3 25.3 - 30.9 PG 01/01/2017 4:07 PM [facility] MCHC 33.7 31.0 - 34.1 G/DL 01/01/2017 4:07 PM [facility] RDW 12.5 12.4 - 15.1 % 01/01/2017 4:07 PM [facility] PLT 216 151 - 353 x10'3/uL 01/01/2017 4:07 PM [facility] MPV 10.5 9.6 - 12.0 FL 01/01/2017 4:07 PM [facility] RBC MORPHOLOGY NORMAL 01/01/2017 4:07 PM [facility] PLT MORPH. NORMAL 01/01/2017 4:07 PM [facility] WBC MORPHOLOGY NORMAL 01/01/2017 4:07 PM T [facility] LYMPHOCYTES % 23.2 15.8 - 45.0 % 01/01/2017 4:07 PM [facility] NEUTROPHILS % 65.3 42.1 - 71.9 % 01/01/2017 4:07 PM T [facility] MONOCYTES % 9.4 5.7 - 12.5 % 01/01/2017 4:07 PM CDT [facility] EOSINOPHILS 0.9 0.0 - 5.6 % 01/01/2017 4:07 PM CDT [facility] BASOPHILS 0.6 0.0 - 1.3 % 01/01/2017 4:07 PM CDT [facility] ABS. NEUTROPHILS TOTAL 4.61 1.40 - 6.00 x10'3/uL 01/01/2017 4:07 PM CDT [facility] IMMATURE GRANS % 0.6(H) 0.0 - 0.5 % 01/01/2017 4:07 PM CDT [facility] ABS. LYMPHOCYTES 1.63 0.80 - 4.70 x10'3/uL 01/01/2017 4:07 PM CDT [facility] 01/01/2017 3:57 PM CDT 01/01/2017 4:03 PM CDT us Generic Conversion Md [facility] Final R esult [facility] [address] [place] [address], [place] [phone] documented in this encounter Visit Diagnoses Not on filedocumented in this encounter
--- OUTSIDE RECORDS SUMMARY | 2024-10-02 15:11 | XMS_ITS | Clinical Summary ---
Author Organization [facility] [address] Address [address] [place] [address] Care Team Providers Care Oxygraph Operator Name Role Phone Leora Lobo NP Primary Care Provider [phone] Abdias Corbin DO Unavailable [phone] Tanner Najera MD Unavailable [phone] Allergies Active Allergy Reactions Criticality Noted Date Comments Adhesive Redness Low 01/21/2021 Use paper tape only Aspirin Hives Medium 12/31/2020 Iodine Hives Medium 12/31/2020 Penicillin G Hives Medium 12/31/2020 Shellfish Containing Products Hives Medium 12/31/2020 Sulfa (Sulfonamide Antibiotics) Mental status changes Low 01/08/2021 Medications oxyCODONE (ROXICODONE) 5 mg immediate release tabletIndicatio ns:Pain Take 1 tablet (5 mg total) by mouth every 4 (four) hours as needed for pain 3 tablet 1 Active Additional Information Patient not taking.Reported on 04/16/2021 cholecalciferol (VITAMIN D-3) 2000 unit capsule Take 1 capsule (2,000 Units total) by mouth daily 90 capsule 1 2 Active Active Problems Problem Noted Date Diagnosed Date 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, estrogen receptor positive 04/16/2021 Cancer Staging:Clinical stage from 04/16/2021:Stage IA(cT1c, cN0(f), cM0, G2, ER+, PA+, HER2-) - Signed by Abdias Corbin DO on 04/17/2021 Surgical History Surgery Date Site/Laterality Comments US GUIDED BIOPSY LYMPH NODE SUPERFICIAL LEFT 01/08/2021 N/A BREAST BIOPSY 01/08/2021 Left GALLBLADDER SURGERY 03/20/1958 - 03/19/1959 Medical History Medical History Date Comments Known health problems: none Family History Medical History Relation Name Comments Lung cancer Father No Known Problems Maternal Grandfather No Known Problems Maternal Grandmother No Known Problems Mother No Known Problems Paternal Grandfather No Known Problems Paternal Grandmother Lung cancer Sister Anesthesia problems Neg Hx Relation Name Status Comments Father Maternal Grandfather Maternal Grandmother Mother Paternal Grandfather Paternal Grandmother Sister Social History Tobacco Use Types Packs/Day Years Used Date Smoking Tobacco: Never Smokeless Tobacco: Never AUDIT-C Answer Date Recorded Q1: How often do you have a drink containing alc ohol? Never 04/17/2021 Average Number of Drinks Not on file 022 Frequency of Binge Drinking Not on file 03/21 Comments No Sex and Gender Information Value Date Recorded Sex Assigned at Not on file Legal Sex Female 4:12 PM CDT Gender Identity Not on file Sexual Orientation Not on file Occupation Industry Job Start Date Job End Date Homemaker Not on file Not on file Not on file Obstetrics History Last Filed Vital Signs Vital Sign Reading Time Taken Comments Blood Pressure 163/94 04/16/2021 11:40 AM FLAT CUTTER Pulse 99 04/16/2021 11:40 AM FLAT CUTTER Temperature 36.7 C (98.1 F) 04/16/2021 11:40 AM FLAT CUTTER Respiratory Rate 16 04/16/2021 11:40 AM FLAT CUTTER Oxygen Saturation 95% 04/16/2021 11:40 AM FLAT CUTTER Inhaled Oxygen Concentration - - Weight 80.3 kg (177 lb 0.5 oz) 04/16/2021 11:40 AM FLAT CUTTER Height 160 cm (5' 3) 04/16/2021 11:40 AM FLAT CUTTER Body Mass Index 31.36 04/16/2021 11:40 AM FLAT CUTTER Plan of Treatment Not on file Medical Devices Implanted Type Area Staffing Manager Device Identifier Shelf Expiration Date Model / Serial / Lot [employer] [id number] [id number] 18ga 7cm Marker Breast Biopsy - [id number] Implanted:Qty: 1 on 01/25/2021 at [facility] [employer] [id number] 09/16/2024 [id number] / / [id number] Insurance [place] [employer] MEDICARE [facility] AD[employer] AETNA [facility] [employer] Care Teams Oxygraph Operator Relationship Specialty Start Date End Date Leora Lobo NP [address] [place] [address] PCP - General Nurse Practitioner 11/30/20 Abdias Corbin DO [address] [place] [address] MEDICAL ONCOLOGY, [address] [address] Medical Oncologist/Fence Setter Hematology and Oncology 04/16/21 Tanner Najera MD [address] [place] [address] MEDICAL ONCOLOGY, [address] [address] Surgeon Surgical Oncology 04/16/21
--- OUTSIDE RECORDS SUMMARY | 2024-10-02 15:11 | XMS_ITS | Referral Summary ---
Author Organization [facility] [address] Address [address] [place] [address] Care Team Providers Care Warehouse General Laborer Name Role Phone Leora Lobo NP Primary Care Provider [phone] Abdias Corbin DO Unavailable [phone] Tanner Najera MD Unavailable [phone] Allergies Active Allergy Reactions Criticality Noted Date [...] from 04/16/2021:Stage IA(cT1c, cN0(f), cM0, G2, ER+, MI+, HER2-) - Signed by Abdias Corbin DO on 04/17/2021 Social History Tobacco Use Types Packs/Day Years [...] file Not on file Not on file Last Filed Vital Signs Vital Sign Reading Time Taken Comments Blood Pressure 163/94 04/16/2021 11:40 AM CONSTRUCTION HELPER Pulse 99 04/16/2021 11:40 AM CONSTRUCTION HELPER Temperature 36.7 C (98.1 F) 04/16/2021 11:40 AM CONSTRUCTION HELPER Respiratory Rate 16 04/16/2021 11:40 AM CONSTRUCTION HELPER Oxygen Saturation 95% 04/16/2021 11:40 AM CONSTRUCTION HELPER Inhaled Oxygen Concentration - - Weight 80.3 kg (177 lb 0.5 oz) 04/16/2021 11:40 AM CONSTRUCTION HELPER Height 160 cm (5' 3) 04/16/2021 11:40 AM CONSTRUCTION HELPER Body Mass Index 31.36 04/16/2021 11:40 AM CONSTRUCTION HELPER Plan of Treatment Not on file Medical Devices Implanted Type Area Tank Builder Device Identifier Shelf Expiration Date Model / Serial / Lot [employer] [id number] Magseed 18ga 7cm Marker Breast Biopsy - [id number] Implanted:Qty: 1 on 01/25/2021 at [facility] [employer] [id number] 09/16/2024 [id number] / / [id number] [facility] [place] [address] Care Teams Warehouse General Laborer Relationship Specialty Start Date End Date Leora Lobo [employer]ARN[employer] REMOVER [address] [place] [address] PCP - General Nurse Practitioner 11/30/20 Abdias Corbin DO [address] [facility] MEDICAL ONCOLOGY, [address] [id number] Medical Oncologist/Icu Nurse Hematology and Oncology 04/16/21 Tanner Najera MD [facility] MEDICAL ONCOLOGY, [address] [phone] Surgeon Surgical Oncology 04/16/21
--- NOTE | 2024-10-02 15:45 | ED_ITS ---
HPI - Nausea/Vomiting/Diarrhea General Chief complaint: Nausea/Vomiting/Diarrhea Stated complaint: nausea and vomiting x 2 days Time Seen by Provider: 10/02/24 15:45 Source: family and EMS Mode of arrival: EMS Limitations: dementia History of Present Illness HPI Narrative: 8-year-old female with a history of dementia diabetes mellitus presents to the ED with a 1 day history of -- nausea with vomiting. Unsure as to how many episodes of vomiting she has had. Abdominal pain. -- Decreased oral intake no fever or chills. Family stated that she has these symptoms when she gets urinary tract infection. MD elicited complaint: nausea and vomiting Onset (ago): day(s) ( One day) Associated nausea: Yes Associated abdominal pain: No Location of pain: none Exacerbating factors: none Relieving factors: none Associated symptoms: denies other symptoms Related Data Allergies Allergy/AdvReac Type Severity Reaction Status Date / Time Penicillins Allergy Intermediate Hives Verified 10/02/24 10:31 Fish Containing Products Allergy Mild Hives Verified 10/02/24 10:31 shellfish derived Allergy Mild Hives Verified 10/02/24 10:31 iodine Allergy Unknown Hives Verified 10/02/24 10:31 Sulfa (Sulfonamide Allergy Unknown Verified 10/02/24 10:31 Antibiotics) aspirin AdvReac Intermediate Gastrointestinal Verified 10/02/24 10:31 Upset codeine AdvReac Intermediate Nausea Verified 10/02/24 10:31 Review of Systems 2 Review of Systems: All systems reviewed & are unremarkable except as noted in HPI and below ROS unobtainable: Yes unobtainable due to mental status PMFSH Past Medical History Medical History (Updated 10/02/24 @ 17:35 by Vernon Mckeon MD) BMI 28.0-28.9,adult Eustachian tube dysfunction Dysuria Type 2 diabetes mellitus Surgical History Surgical History Hx of cholecystectomy History of appendectomy Family History Family History Other Family history non-contributory Social History Social History Social History: Lives alone. Has children and grandchildren nearby. Smoking status: Former smoker Tobacco type: cigarettes Alcohol intake: never Substance use: never Substance use type: does not use Gender identity (if verbalized by the patient): Female Spiritual care concerns: No Exam 2 Narrative: afebrile. Vitals are stable. Const: General: cooperative and comfortable Orientation/consciousness: O ther orientation findings ( Patient is oriented x1.) Limitations: other limitations ( Dementia) HENMT: Head: normal to inspection, No palpable skull fracture present, normocephalic and atraumatic Ears: hearing grossly normal bilaterally F kalyn/Nose/Sinus: Normal external nose present and Normal nares present Face and sinus: normal facial exam and sinuses nontender Mouth: Yes Normal oral and palatal mucosa present, Yes lip normal and Yes tongue normal Throat: p osterior oropharynx normal Eyes: General: appearance normal, both eyes and all related structures A lignment and Position: alignment normal Eyelids: eyelids normal C onjunctivae: conjunctivae normal Sclera: sclerae normal Cornea: corneas normal Pupils: Equal, round and reactive pupils present Neck: Neck: normal visual inspection, full ROM, no lymphadenopathy and no meningeal signs Chest: Chest palpation & inspection: normal inspection of the chest Resp: Effort & Inspection: normal respiratory effort Auscultation: clear to auscultation bilaterally Cardio: Jugular venous distension: no JVD Palpation: normal PMI Rate: r egular rate Rhythm: regular rhythm Heart sounds: S1 normal heart sound present and S2 normal heart sound present GI: Inspection: normal to inspection and other ( no tenderness/rigidity / rebound.) : General: Yes no CVA tenderness Back/Spine/Pelvis: Back: no CVA tenderness Skin: General skin exam: normal color, no rashes or lesions noted, elasticity normal and turgor normal Neuro: General: oriented to place Cranial nerves: Yes CN's II-XII intact bilaterally Speech: normal speech Gait exam (Neuro): Unable to assess gait Extrem: General: normal to inspection, full ROM, capillary refill normal and normal exam except as noted Psych: Appearance: grossly normal and well kempt Course Course Emergency Course: Nausea and vomiting-- no episodes of vomiting noted in the ED. blood work revealed normal white cell count and chemistries except for mildly elevated AST/ALT of 50/37. Urine is negative for infection. Patient had normal troponins normal TSH. Vital Signs Vital signs: Vital Signs Temperature 36.4 C 10/02/24 15:10 Pulse Rate 60 10/02/24 15:10 Respiratory Rate 18 10/02/24 15:10 Blood Pressure 142/66 H 10/02/24 15:10 Pulse Oximetry 99 10/02/24 15:10 Oxygen Delivery Room Air 10/02/24 15:10 Temperature 36.4 C 10/02/24 15:10 Pulse Rate 60 10/02/24 15:10 Respiratory Rate 18 10/02/24 15:10 Blood Pressure 142/66 H 10/02/24 15:10 Pulse Oximetry 99 10/02/24 15:10 Oxygen Delivery Room Air 10/02/24 15:10 MDM - Nausea/Vomiting/Diarrhea MDM Narrative Medical decision making narrative: Gastritis transaminitis-- patient has elevated LFTs with normal alkaline phosphatase and Bilirubin, Patient had a cholecystectomy in the past. Differential Diagnosis Differential diagnosis: Likely food poisoning and drug-induced nausea and vomiting Medical Records Attestation: I reviewed the patient's medical records. Lab Data Attestation: I reviewed the patient's lab results. 10/02/24 16:14 10/02/24 16:14 Labs: Lab Results 10/02/24 10/02/24 Range/Units 15:44 16:14 WBC 5.1 (4.8-10.8) K/mm3 RBC 4.68 (4.20-5.40) M/mm3 Hgb 13.6 (11.7-13.8) g/dL Hct 41.5 (35.0-42.0) % MCV 88.7 (78.0-102.0) fL MCH 29.1 (27.0-31.0) pg MCHC 32.8 (32-36) g/dL RDW 12.5 (11.6-14.4) % Plt Count 176 (150-420) K/mm3 MPV 10.5 (9.2-11.8) fl Immature Gran % (Auto) 0.2 H (0.0-0.0) % Neut % (Auto) 88.3 H (50.0-70.0) % Lymph % (Auto) 7.6 L (18.0-42.0) % [place] % (Auto) 3.7 (2.0-11.0) % Eos % (Auto) 0.0 L (1.0-6.0) % Baso % (Auto) 0.2 (0.0-1.0) % Lymph # (Auto) 0.39 L (1.10-4.50) K/mm3 [place] # (Auto) 0.19 (0.10-0.90) K/mm3 Eos # (Auto) 0.00 L (0.02-0.50) K/mm3 Baso # (Auto) 0.01 (0.00-0.10) K/mm3 Abs Immat Gran (auto) 0.01 H (0.00-0.00) K/mm3 Absolute Neuts (auto) 4.51 (1.70-7.20) K/mm3 Absolute Nucleated RBC 0.00 (0.00-0.00) K/mm3 Nucleated RBC % 0.0 (0-0.0) % Sodium 141 (137-145) mmol/L Potassium 4.0 (3.4-5.0) mmol/L Chloride 104 (98-107) mmol/L Carbon Dioxide 31 H (22-30) mmol/L Anion Gap 6 (4-12) mmol/L BUN 12 (7-17) mg/dL Creatinine 0.70 (0.7-1.0) mg/dL Estim Creat Clear Calc 37 ml/min Estimated GFR > 60 (59 - ) Glucose 129 H (65-110) mg/dL Calculated Osmolality 293 (285-295) mOsm/kg Lactic Acid 1.2 (0.4-2.0) mmol/L Calcium 9.0 (8.4-10.2) mg/dL Total Bilirubin 0.6 (0.2-1.3) mg/dL AST 50 H (14-36) U/L ALT 37 H (6-35) U/L Alkaline Phosphatase 89 (38-126) U/L Troponin I < 0.012 (0.000-0.034) ng/mL Total Protein 7.2 (6.3-8.2) g/dL Albumin 4.1 (3.5-5.1) g/dL Lipase 47 (23-300) U/L TSH 2.720 (0.465-4.680) uIU/mL Urine Color Yellow (Yellow) Urine Appearance Clear (Clear) Urine pH 6.0 (5.0-8.0) Ur Specific [place] 1.025 H (1.010-1.020) Urine Protein Negative (Negative) Urine Glucose (UA) Negative (Negative) Urine Ketones 1+ H (Negative) Ur Blood (Man) Negative (Negative) Urine Nitrate Negative (Negative) Urine Bilirubin Negative (Negative) Urine Urobilinogen 0.2 (0.2-1.0) mg/dL Leukocyte Esterase Rfl Negative (Negative) [place] Discharge Plan Discharge Clinical Impression: Transaminitis Gastritis Qualifiers: Gastritis type: unspecified gastritis Chronicity: acute Gastritis bleeding: w ithout bleeding Qualified Code(s): K29.00 - Acute gastritis without bleeding Patient Disposition: [place] Skilled Nursing/Asst Living Condition: Stable Instructions: Antibiotic Form, Gastritis (ED) Patient Language: [place] Prescriptions: New omeprazole 20 mg capsule,delayed release(DR/EC) 20 mg PO DAILY Qty: 14 0RF No Action rivastigmine 9.5 mg/24 hour patch 24 hour 1 patch transdermal DAILY Qty: 30 0RF Follow-up/Referrals: Carlos Nolasco DO [Primary Care Provider] - Time of Disposition: 17:36
--- OUTSIDE RECORDS SUMMARY | 2024-10-02 15:48 | XMS_ITS | Encounter Summary ---
Author Organization [facility] Address [facility] [place] [address] Care Team Providers Care Lens Gauger Name Role Phone Unavailable Primary Care Provider Unavailabl e Encounter Details Date Type Department Care Team (Late st Contact Info) Description 01/01/2017 Abstract [facility] CONVERSION [address] [place] [address] , Generic ConversionMD Social History [...] - 78.0 UNITS/L 01/01/2017 4:25 PM CDT [facility] SERUM OR PLASMA SPECIMEN / Unknown 01/01/2017 3:57 PM CDT 01/01/2017 4:03 PM CDT Generic Conversion Md [facility] Final R esult [facility] [address] [place] [address], * (ABNORMAL) COMPREHENSIVE METABOLIC PANEL (01/01/2017 3:57 PM CDT) [facility] GLUCOSE 103 83 - 110 MG/DL 01/01/2017 4:25 PM CDT [facility] BUN 16 9.8 - 20.1 MG/DL 01/01/2017 4:25 PM CDT [facility] CREATININE S/P/B 0.82 0.57 - 1.11 MG/DL 01/01/2017 4:25 PM CDT [facility] SODIUM S/P/B 142 136 - 145 MMOL/L 01/01/2017 4:25 PM CDT [facility] POTASSIUM S/P/B 3.3(L) 3.5 - 5.1 MMOL/L 01/01/2017 4:25 PM CDT [facility] CHLORIDE S/P/B 108(H) 98 - 107 MMOL/L 01/01/2017 4:25 PM CDT [facility] CO2 26.0 23 - 31 MMOL/L 01/01/2017 4:25 PM T [facility] ANION GAP 11.3 10.0 - 24.0 MMOL/L 01/01/2017 4:25 PM T [facility] OSMOLALITY (CALC) 285 271 - 290 MOSM/KG 01/01/2017 4:25 PM T [facility] CALCIUM S/P/B 9.5 8.4 - 10.2 MG/DL 01/01/2017 4:25 PM T [facility] BILIRUBIN TOTAL S/P/B 0.4 0.2 - 1.2 MG/DL 01/01/2017 4:25 PM T [facility] TOTAL PROTEIN S/P/B 7.3 6.4 - 8.3 G/DL 01/01/2017 4:25 PM CDT [facility] ALBUMIN S/P/B 3.9 3.4 - 4.8 G/DL 01/01/2017 4:25 PM CDT [facility] AST 16 5 - 34 U/L 01/01/2017 4:25 PM CDT [facility] ALT 14 6 - 55 U/L 01/01/2017 4:25 PM T [facility] ALKALINE PHOSPHATASE S/P/B 78 30 - 130 U/L 01/01/2017 4:25 PM CDT [facility] BUN CREATININE RATIO 19.5 6.0 - 26.0 01/01/2017 4:25 PM T [facility] A/G RATIO 1.1 1.1 - 1.9 RATIO 01/01/2017 4:25 PM T [facility] EGFR NON-AFR. AMER. >60 >60 ML/MIN/1.7 3 M2 01/01/2017 4:25 PM CDT [facility] Comment: GFR Reference Range:Kidney Failure - <15mL/min Chronic Kidney Disease - <60mL/min Normal Kidney Function - >60mL/min GFR calculation is not recommended forPatients less than 18 years or greater than70 years as per the national Kidney Foundation.If the patient is -Libyan, multiply results by 1.21 01/01/2017 3:57 PM CDT 01/01/2017 4:03 PM CDT us Generic Conversion Md [facility] Final R esult [facility] [address] [place] [address], [place] [phone] * (ABNORMAL) CBC W/DIFF AUTOMATED (01/01/2017 3:57 PM CDT) WBC 7.0 4.4 - 11.0 x10'3/uL 01/01/2017 4:07 PM CDT [facility] RBC 4.75 4.50 - 5.10 x10'6/uL 01/01/2017 4:07 PM T [facility] HGB 13.9 12.3 - 15.3 G/DL 01/01/2017 4:07 PM [facility] HCT 41.2 35.9 - 44.6 % 01/01/2017 4:07 PM T [facility] MCV 86.7 80.0 - 96.0 FL 01/01/2017 4:07 PM T [facility] MCH 29.3 25.3 - 30.9 PG 01/01/2017 4:07 PM [facility] MCHC 33.7 31.0 - 34.1 G/DL 01/01/2017 4:07 PM [facility] RDW 12.5 12.4 - 15.1 % 01/01/2017 4:07 PM [facility] PLT 216 151 - 353 x10'3/uL 01/01/2017 4:07 PM [facility] MPV 10.5 9.6 - 12.0 FL 01/01/2017 4:07 PM [facility] RBC MORPHOLOGY NORMAL 01/01/2017 4:07 PM [facility] PLT MORPH. NORMAL 01/01/2017 4:07 PM [facility] WBC MORPHOLOGY NORMAL 01/01/2017 4:07 PM T [facility] LYMPHOCYTES % 23.2 15.8 - 45.0 % 01/01/2017 4:07 PM [facility] NEUTROPHILS % 65.3 42.1 - 71.9 % 01/01/2017 4:07 PM T [facility] MONOCYTES % 9.4 5.7 - 12.5 % 01/01/2017 4:07 PM CDT [facility] EOSINOPHILS 0.9 0.0 - 5.6 % 01/01/2017 4:07 PM CDT [facility] BASOPHILS 0.6 0.0 - 1.3 % 01/01/2017 4:07 PM CDT [facility] ABS. NEUTROPHILS TOTAL 4.61 1.40 - 6.00 x10'3/uL 01/01/2017 4:07 PM CDT [facility] IMMATURE GRANS % 0.6(H) 0.0 - 0.5 % 01/01/2017 4:07 PM CDT [facility] ABS. LYMPHOCYTES 1.63 0.80 - 4.70 x10'3/uL 01/01/2017 4:07 PM CDT [facility] 01/01/2017 3:57 PM CDT 01/01/2017 4:03 PM CDT us Generic Conversion Md [facility] Final R esult [facility] [address] [place] [address], [place] [phone] documented in this encounter Visit Diagnoses Not on filedocumented in this encounter
--- OUTSIDE RECORDS SUMMARY | 2024-10-02 15:48 | XMS_ITS | Referral Summary ---
Author Organization [facility] [address] Address [address] [place] [address] Care Team Providers Care Bookmobile Driver Name Role Phone Leora Lobo NP Primary Care Provider [phone] Abdias Corbin DO Unavailable [phone] Tanner Najera MD Unavailable [phone] Allergies Active Allergy Reactions Criticality Noted Date [...] from 04/16/2021:Stage IA(cT1c, cN0(f), cM0, G2, ER+, OH+, HER2-) - Signed by Abdias Corbin DO [...] Comments Blood Pressure 163/94 04/16/2021 11:40 AM ENTRY WRITER Pulse 99 04/16/2021 11:40 AM ENTRY WRITER Temperature 36.7 C (98.1 F) 04/16/2021 11:40 AM ENTRY WRITER Respiratory Rate 16 04/16/2021 11:40 AM ENTRY WRITER Oxygen Saturation 95% 04/16/2021 11:40 AM ENTRY WRITER Inhaled Oxygen Concentration - - Weight 80.3 kg (177 lb 0.5 oz) 04/16/2021 11:40 AM ENTRY WRITER Height 160 cm (5' 3) 04/16/2021 11:40 AM ENTRY WRITER Body Mass Index 31.36 04/16/2021 11:40 AM ENTRY WRITER Plan of Treatment Not on file Medical Devices Implanted Type Area Crew Team Member Device Identifier Shelf Expiration Date Model / Serial / Lot Jobydu [id number] [id number] 18ga 7cm Marker Breast Biopsy - [id number] Implanted:Qty: 1 on 01/25/2021 at [facility] Jobydu [id number] 09/16/2024 [id number] / / [id number] [facility] A[facility]IC[facility] [place] [address] Care Teams Bookmobile Driver Relationship Specialty Start Date End Date Leora Lobo SALES CORRESPONDENCE CLERK [address] [place] [address] PCP - General Nurse Practitioner 11/30/20 Abdias Corbin DO [address] [facility]Y, [address] [id number] Medical Oncologist/Blanket Folder Hematology and Oncology 04/16/21 Tanner Najera MD [facility] MEDICAL ONCOL[facility], [address] [id number] Surgeon Surgical Oncology 04/16/21
--- OUTSIDE RECORDS SUMMARY | 2024-10-02 15:48 | XMS_ITS | Clinical Summary ---
Author Organization [facility] [address] Address [address] [place] [address] Care Team Providers Care Hatchery Helper Name Role Phone Leora Lobo NP Primary Care Provider [phone] Abdias Corbin DO Unavailable [phone] Tanner Najera MD Unavailable [phone] Allergies Active Allergy Reactions Criticality Noted Date [...] from 04/16/2021:Stage IA(cT1c, cN0(f), cM0, G2, ER+, ID+, HER2-) - Signed by Abdias Corbin DO [...] Comments Blood Pressure 163/94 04/16/2021 11:40 AM DESIGNER ARCHITECT Pulse 99 04/16/2021 11:40 AM DESIGNER ARCHITECT Temperature 36.7 C (98.1 F) 04/16/2021 11:40 AM DESIGNER ARCHITECT Respiratory Rate 16 04/16/2021 11:40 AM DESIGNER ARCHITECT Oxygen Saturation 95% 04/16/2021 11:40 AM DESIGNER ARCHITECT Inhaled Oxygen Concentration - - Weight 80.3 kg (177 lb 0.5 oz) 04/16/2021 11:40 AM DESIGNER ARCHITECT Height 160 cm (5' 3) 04/16/2021 11:40 AM DESIGNER ARCHITECT Body Mass Index 31.36 04/16/2021 11:40 AM DESIGNER ARCHITECT Plan of Treatment Not on file Medical Devices Implanted Type Area Doctor Of Radiology Device Identifier Shelf Expiration Date Model / Serial / Lot Cuciniale [id number] [id number] 18ga 7cm Marker Breast Biopsy - [id number] Implanted:Qty: 1 on 01/25/2021 at [facility] Cuciniale [id number] 09/16/2024 [id number] / / [id number] Insurance [employer] AETNA MEDICARE [facility] ADVANTRA AETNA [facility] ADVANTRA Care Teams Hatchery Helper Relationship Specialty Start Date End Date Leora Lobo NP [address] [place] [address] PCP - General Nurse Practitioner 11/30/20 Abdias Corbin DO [address] [place] [address] MEDICAL ONCOLOGY, [address] [address] Medical Oncologist/Manager Functional Hematology and Oncology 04/16/21 Tanner Najera MD [address] [place] [address] MEDICAL ONCOLOGY, [address] [address] Surgeon Surgical Oncology 04/16/21
--- OUTSIDE RECORDS SUMMARY | 2024-10-02 15:48 | XMS_ITS | Clinical Summary ---
Author Organization [facility] Address [facility] [place] [address] Care Team Providers Care Garage Hand Name Role Phone Unavailable Primary Care Provider [...]
[2024-10-02 15:55] LABS: Add Urine Microscopic? NO; Appearance Urine Clear (Clear); Glucose Urine UA Negative (Negative); Leukocyte Esterase Ur Negative LEU/UL (Negative); Nitrate Urine Negative (Negative); Specific Grav Ur 1.025 (1.010-1.020)
[2024-10-02 16:21] LABS: Hematocrit 41.5 % (35.0-42.0); Hemoglobin 13.6 g/dL (11.7-13.8); Immature Granulocyte Percent A 0.2 % (0.0-0.0); Lymphocytes Absolute Auto 0.39 K/mm3 (1.10-4.50); Mean Corpuscular HGB Conc 32.8 g/dL (32-36); Mean Corpuscular Hemoglobin 29.1 pg (27.0-31.0); Mean Corpuscular Volume 88.7 fL (78.0-102.0); Nucleated Red Blood Cells Absolute Auto 0.00 K/mm3 (0.00-0.00); Nucleated Red Blood Cells Perc 0.0 % (0-0.0); Platelet Count Result 176 K/mm3 (150-420); Red Blood Count 4.68 M/mm3 (4.20-5.40); White Blood Count 5.1 K/mm3 (4.8-10.8)
[2024-10-02 16:32] LABS: Alanine Aminotransferase 37 U/L (6-35); Albumin Level 4.1 g/dL (3.5-5.1); Alkaline Phosphatase 89 U/L (38-126); Anion Gap 6 mmol/L (4-12); Aspartate Amino Transferase 50 U/L (14-36); Bilirubin,Total 0.6 mg/dL (0.2-1.3); Blood Urea Nitrogen 12 mg/dL (7-17); Calcium 9.0 mg/dL (8.4-10.2); Carbon Dioxide 31 mmol/L (22-30); Chloride 104 mmol/L (98-107); Estimated CRCL calculation 37 ml/min; Estimated Glomerular Filt Rate > 60; Glucose 129 mg/dL (65-110); Lipase 47 U/L (23-300); Osmolality Calculated 293 mOsm/kg (285-295); Potassium 4.0 mmol/L (3.4-5.0); Sodium 141 mmol/L (137-145); Total Protein 7.2 g/dL (6.3-8.2)
[2024-10-02 16:44] LABS: Troponin I < 0.012 ng/mL (0.000-0.034)
[2024-10-02 17:03] LABS: Thyroid Stimulating Hormone 2.720 uIU/mL (0.465-4.680)
--- NOTE | 2024-10-02 17:45 | PC.NURSE ---
Call placed to [facility] and spoke to Leora on pt return and new med prescribed, pt left via w/c w/ daughter to return to [place].
[2024-10-02 17:46] VITALS: BP 126/84; PULSE 71; RESP 18; O2SAT 97
== END 2024-10-02 17:46 ==
PROVIDERS: Emergency Provider Internal Medicine Critical Care Medicine; PCP Family Medicine
DX: R74.01 Elevation of levels of liver transaminase levels (principal); K29.00 Acute gastritis without bleeding; F03.90 Unspecified dementia, unspecified severity, without behavioral disturbance, psychotic disturbance, mood disturbance, and anxiety; E11.9 Type 2 diabetes mellitus without complications; Z87.891 Personal history of nicotine dependence
CPT/HCPCS: 36415; 80053; 81003; 83605; 83690; 84443; 84484; 85025; 99284

== ENCOUNTER 2024-12-27 12:00 | Emergency (ER) | payer OTHER, SELFPAY ==
[2024-12-27] VITALS (8 sets, daily range): BP systolic 155–169; BP diastolic 80–107; PULSE 71–72; RESP 18–20; TEMP 36.6–36.7; O2SAT 97–100
--- NOTE | ~2024-12-27 | CT_ITS ---
EXAMINATION: CT brain wo morena, 12/27/2024 13:00 CDT HISTORY: AMS COMPARISON: No comparisons available. Technique: Axial images obtained of the brain without contrast. One or more of the following dose reduction techniques were used: automated exposure control, adjustment of the mA and/or kV according to patient size, use of iterative reconstruction technique. Findings: No acute infarct or parenchymal hemorrhage. No abnormal mass or mass effect. No midline shift. No extra-axial fluid collections. No hydrocephalus. Mastoid air cells unremarkable. Sinuses and orbits unremarkable. No acute fracture. No significant facial or scalp soft tissue swelling evident. No radiopaque foreign body is seen. Impression: 1.No acute intracranial abnormality. Reviewed, dictated and finalized at location P. Impression: 1.No acute intracranial abnormality.
--- NOTE | ~2024-12-27 | XR_ITS ---
EXAMINATION: XR chest 1V portable COMPARISON: No comparisons available. HISTORY: sepsis/ SOB/ AMS FINDINGS: The lungs are clear, no effusion. No pneumothorax. Heart is normal size. Mediastinal and hilar contours are within normal limits. Bony thorax no acute abnormality. Miscellaneous: None Impression: No acute cardiopulmonary abnormality. Reviewed, dictated and finalized at location P. Impression: No acute cardiopulmonary abnormality.
--- NOTE | 2024-12-27 12:18 | ECG_ITS ---
Test Date: 2024-12-27 12:33:25 Measurements Intervals [place] Rate: 69 P: 151 [place]: 143 QRS: 113 QRSD: 88 T: 127 QT: 411 QTc: 440 Interpretive Statements SINUS RHTYHM LIMB LEAD REVERSAL BORDERLINE R WAVE PROGRESSION, ANTERIOR LEADS BASELINE ARTIFACT- I, III,, V6 BORDERLINE ECG No previous ECG available for comparison Electronically Signed On 12-27-2024 13:12:06 CDT by Morgan Garibay D.O.
[2024-12-27] MEDS: SODIUM CHLORIDE 0.9% IV 1,000 ML 150 ML IV CONT (12:24)
[2024-12-27 12:46] LABS: Hematocrit 39.4 % (35.0-42.0); Hemoglobin 12.6 g/dL (11.7-13.8); Immature Granulocyte Percent A 0.2 % (0.0-0.0); Lymphocytes Absolute Auto 0.88 K/mm3 (1.10-4.50); Mean Corpuscular HGB Conc 32.0 g/dL (32-36); Mean Corpuscular Hemoglobin 29.0 pg (27.0-31.0); Mean Corpuscular Volume 90.8 fL (78.0-102.0); Nucleated Red Blood Cells Absolute Auto 0.00 K/mm3 (0.00-0.00); Nucleated Red Blood Cells Perc 0.0 % (0-0.0); Platelet Count Result 171 K/mm3 (150-420); Red Blood Count 4.34 M/mm3 (4.20-5.40); White Blood Count 5.3 K/mm3 (4.8-10.8)
[2024-12-27 12:48] LABS: Add Urine Microscopic? NO; Appearance Urine Clear (Clear); Glucose Urine UA Negative (Negative); Leukocyte Esterase Ur Negative LEU/UL (Negative); Nitrate Urine Negative (Negative); Specific Grav Ur 1.025 (1.010-1.020)
[2024-12-27 13:00] LABS: Alanine Aminotransferase 18 U/L (6-35); Albumin Level 4.0 g/dL (3.5-5.1); Alkaline Phosphatase 72 U/L (38-126); Anion Gap 8 mmol/L (4-12); Aspartate Amino Transferase 29 U/L (14-36); Bilirubin,Total 0.9 mg/dL (0.2-1.3); Blood Urea Nitrogen 11 mg/dL (7-17); CRP < 0.5 mg/dL (<1.0); Calcium 9.3 mg/dL (8.4-10.2); Carbon Dioxide 27 mmol/L (22-30); Chloride 108 mmol/L (98-107); Estimated CRCL calculation 38 ml/min; Estimated Glomerular Filt Rate > 60; Glucose 109 mg/dL (65-110); Osmolality Calculated 296 mOsm/kg (285-295); Potassium 4.0 mmol/L (3.4-5.0); Sodium 143 mmol/L (137-145); Total Protein 7.5 g/dL (6.3-8.2)
[2024-12-27 13:07] LABS: NT Pro B Type Natriuretic Pept 1150 pg/mL (19.9-100)
--- NOTE | 2024-12-27 13:28 | ED.AMS ---
HPI - Altered Mental Status General Chief Complaint: Altered Mental Status Stated Complaint: altered mental status Time Seen by Provider: 12/27/24 12:17 Source: EMS Mode of arrival: EMS Limitations: dementia History of Present Illness HPI narrative: 89-year-old with a history of dementia was brought in from snf with the complaints of altered mental status for past 3 days. She denies any fever or chills. Patient is a poor historian. patient presently denies having any chest pain or shortness of breath. She states that she wants warm blanket. complaint: altered mental status Onset (ago): unknown Severity: moderate Associated symptoms: denies other symptoms Related Data Home Medications ?Medication ?Instructions ?Recorded ?Confirmed ?Last Taken ?Type rivastigmine 13.3 mg/24 hour 13.3 mg transdermal DAILY 12/18/24 12/18/24 Unknown History transdermal patch acetaminophen 325 mg capsule 650 mg PO Q4H PRN pain 12/27/24 Unknown History cranberry conc-vit 30 ea PO DAILY 12/27/24 Unknown History O-bmvgeuv-SZL-bromelain 3,875 mg/30 mL oral liquid (UTI-Stat) Allergies Allergy/AdvReac Type Severity Reaction Status Date / Time Penicillins Allergy Intermediate Hives Verified 12/27/24 12:35 Fish Containing Products Allergy Mild Hives Verified 12/27/24 12:35 shellfish derived Allergy Mild Hives Verified 12/27/24 12:35 iodine Allergy Unknown Hives Verified 12/27/24 12:35 Sulfa (Sulfonamide Allergy Unknown Verified 12/27/24 12:35 Antibiotics) aspirin AdvReac Intermediate Gastrointestinal Verified 12/27/24 12:35 Upset codeine AdvReac Intermediate Nausea Verified 12/27/24 12:35 Review of Systems Review of Systems: All systems reviewed & are unremarkable except as noted in HPI and below ROS unobtainable: Yes unobtainable due to mental status PMFSH Past Medical History Medical History (Updated 12/27/24 @ 13:43 by Geo Campos MD) BMI 28.0-28.9,adult Eustachian tube dysfunction Dysuria Type 2 diabetes mellitus Surgical History Surgical History Hx of cholecystectomy History of appendectomy Family History Family History Other Family history non-contributory Social History Social History Social History: Lives alone. Has children and grandchildren nearby. Smoking status: Former smoker Tobacco type: cigarettes Alcohol intake: never Substance use: never Substance use type: does not use Gender identity (if verbalized by the patient): Female Spiritual care concerns: No Exam Narrative: GENERAL: well-nourished, and in no acute distress. HEAD: Normocephalic, atraumatic. EYES: PERRLA and EOMI. ENT: Nares clear, no rhinorrhea or epistaxis. Mucous membranes moist. NECK: Supple. CHEST: Clear to auscultation. No respiratory distress. HEART: Regular rate and rhythm. No murmur heard. Normal peripheral pulses. ABDOMEN: Soft, nontender, nondistended, normal active bowel sounds. EXTREMITIES: Normal range of motion. No edema. SKIN: Warm, dry, no rash. NEURO: No focal deficits. Alert . PSYCH: Irritable. Course Course Emergency Course: all lab work and CT were unremarkable most likely cause of her AMS is part of her dementia will discharge about to the snf. Vital Signs Vital signs: Vital Signs Temperature 36.6 C 12/27/24 12:00 Pulse Rate 71 12/27/24 12:00 Respiratory Rate 18 12/27/24 12:00 Blood Pressure 163/85 H 12/27/24 12:00 Pulse Oximetry 100 12/27/24 12:00 Oxygen Delivery Room Air 12/27/24 12:00 Temperature 36.6 C 12/27/24 12:00 Pulse Rate 71 12/27/24 12:00 Respiratory Rate 18 12/27/24 12:00 Blood Pressure 163/85 H 12/27/24 12:00 Pulse Oximetry 100 12/27/24 12:00 Oxygen Delivery Room Air 12/27/24 12:00 MDM - Altered Mental Status Differential Diagnosis Differential diagnosis: Likely altered mental status, dementia, hyponatremia and other ( UTI) Medical Records Attestation: I reviewed the patient's medical records. Lab Data Attestation: I reviewed the patient's lab results. 12/27/24 12:33 12/27/24 12:33 Labs: Lab Results 12/27/24 12/27/24 12/27/24 Range/Units 12:33 12:33 12:33 WBC 5.3 (4.8-10.8) K/mm3 RBC 4.34 (4.20-5.40) M/mm3 Hgb 12.6 (11.7-13.8) g/dL Hct 39.4 (35.0-42.0) % MCV 90.8 (78.0-102.0) fL MCH 29.0 (27.0-31.0) pg MCHC 32.0 (32-36) g/dL RDW 12.4 (11.6-14.4) % Plt Count 171 (150-420) K/mm3 MPV 10.7 (9.2-11.8) fl Immature Gran % (Auto) 0.2 H (0.0-0.0) % Neut % (Auto) 70.4 H (50.0-70.0) % Lymph % (Auto) 16.8 L (18.0-42.0) % Reagan % (Auto) 12.2 H (2.0-11.0) % Eos % (Auto) 0.0 L (1.0-6.0) % Baso % (Auto) 0.4 (0.0-1.0) % Lymph # (Auto) 0.88 L (1.10-4.50) K/mm3 Reagan # (Auto) 0.64 (0.10-0.90) K/mm3 Eos # (Auto) 0.00 L (0.02-0.50) K/mm3 Baso # (Auto) 0.02 (0.00-0.10) K/mm3 Abs Immat Gran (auto) 0.01 H (0.00-0.00) K/mm3 Absolute Neuts (auto) 3.70 (1.70-7.20) K/mm3 Absolute Nucleated RBC 0.00 (0.00-0.00) K/mm3 Nucleated RBC % 0.0 (0-0.0) % Sodium 143 (137-145) mmol/L Potassium 4.0 (3.4-5.0) mmol/L Chloride 108 H (98-107) mmol/L Carbon Dioxide 27 (22-30) mmol/L Anion Gap 8 (4-12) mmol/L BUN 11 (7-17) mg/dL Creatinine 0.67 L (0.7-1.0) mg/dL Estim Creat Clear Calc 38 ml/min Estimated GFR > 60 (59 - ) Glucose 109 (65-110) mg/dL Calculated Osmolality 296 H (285-295) mOsm/kg Lactic Acid 1.7 (0.4-2.0) mmol/L Calcium 9.3 (8.4-10.2) mg/dL Total Bilirubin 0.9 (0.2-1.3) mg/dL AST 29 (14-36) U/L ALT 18 (6-35) U/L Alkaline Phosphatase 72 (38-126) U/L C-Reactive Protein Cancelled < 0.5 NT-Pro-B Natriuret Pep Cancelled 1150 H Total Protein 7.5 (6.3-8.2) g/dL Albumin 4.0 (3.5-5.1) g/dL Urine Color (Yellow) Urine Appearance (Clear) Urine pH (5.0-8.0) Ur Specific [place] (1.010-1.020) Urine Protein (Negative) Urine Glucose (UA) (Negative) Urine Ketones (Negative) Ur Blood (Man) (Negative) Urine Nitrate (Negative) Urine Bilirubin (Negative) Urine Urobilinogen (0.2-1.0) mg/dL Leukocyte Esterase Rfl (Negative) [place] 12/27/24 Range/Units 12:43 WBC (4.8-10.8) K/mm3 RBC (4.20-5.40) M/mm3 Hgb (11.7-13.8) g/dL Hct (35.0-42.0) % MCV (78.0-102.0) fL MCH (27.0-31.0) pg MCHC (32-36) g/dL RDW (11.6-14.4) % Plt Count (150-420) K/mm3 MPV (9.2-11.8) fl Immature Gran % (Auto) (0.0-0.0) % Neut % (Auto) (50.0-70.0) % Lymph % (Auto) (18.0-42.0) % Reagan % (Auto) (2.0-11.0) % Eos % (Auto) (1.0-6.0) % Baso % (Auto) (0.0-1.0) % Lymph # (Auto) (1.10-4.50) K/mm3 [place] # (Auto) (0.10-0.90) K/mm3 Eos # (Auto) (0.02-0.50) K/mm3 Baso # (Auto) (0.00-0.10) K/mm3 Abs Immat Gran (auto) (0.00-0.00) K/mm3 Absolute Neuts (auto) (1.70-7.20) K/mm3 Absolute Nucleated RBC (0.00-0.00) K/mm3 Nucleated RBC % (0-0.0) % Sodium (137-145) mmol/L Potassium (3.4-5.0) mmol/L Chloride (98-107) mmol/L Carbon Dioxide (22-30) mmol/L Anion Gap (4-12) mmol/L BUN (7-17) mg/dL Creatinine (0.7-1.0) mg/dL Estim Creat Clear Calc ml/min Estimated GFR (59 - ) Glucose (65-110) mg/dL Calculated Osmolality (285-295) mOsm/kg Lactic Acid (0.4-2.0) mmol/L Calcium (8.4-10.2) mg/dL Total Bilirubin (0.2-1.3) mg/dL AST (14-36) U/L ALT (6-35) U/L Alkaline Phosphatase (38-126) U/L C-Reactive Protein NT-Pro-B Natriuret Pep Total Protein (6.3-8.2) g/dL Albumin (3.5-5.1) g/dL Urine Color Yellow (Yellow) Urine Appearance Clear (Clear) Urine pH 6.0 (5.0-8.0) Ur Specific [place] 1.025 H (1.010-1.020) Urine Protein Negative (Negative) Urine Glucose (UA) Negative (Negative) Urine Ketones Trace H (Negative) Ur Blood (Man) Negative (Negative) Urine Nitrate Negative (Negative) Urine Bilirubin Negative (Negative) Urine Urobilinogen 0.2 (0.2-1.0) mg/dL Leukocyte Esterase Rfl Negative (Negative) [place] Imaging Data Radiologist's impression: ITS Impressions Chest X-Ray 12/27/24 12:31 Impression: No acute cardiopulmonary abnormality. Head CT 12/27/24 13:16 Impression: 1.No acute intracranial abnormality. ECG Data EKG #1: ECG completion date: 12/27/24 ECG completion time: 12:33 EKG Interpretation: normal rate (69), sinus rhythm, no ectopy, no ST changes and no acute changes Discharge Plan Discharge Clinical Impression: AMS (altered mental status) Qualifiers: Altered mental status type: unspecified Qualified Code(s): R41.82 - Altered mental status, unspecified Patient Disposition: NH [facility]/Asst Living Condition: Stable Instructions: Altered Mental Status (ED) Additional Instructions: continue hhome medications, follow with your doctor Patient Language: Danish Prescriptions: No Action acetaminophen 325 mg capsule 650 mg PO Q4H PRN (Reason: pain) UTI-Stat 3,875 mg/30 mL liquid 30 ea PO DAILY Patient Comments: 30 mls daily rivastigmine 13.3 mg/24 hour patch 24 hour 13.3 mg transdermal DAILY Follow-up/Referrals: Carlos Nolasco DO [Primary Care Provider, [facility]] Time of Disposition: 13:43
--- NOTE | 2024-12-27 14:39 | PC.NURSE ---
On 12/27/24, the student, [florina gaytan], provided care and completed [facility] documentation on this patient. I have reviewed the student's documentation and agree with the findings.
== END 2024-12-27 14:40 ==
PROVIDERS: Emergency Provider Family Medicine; PCP Family Medicine
DX: R41.82 Altered mental status, unspecified (principal); E11.9 Type 2 diabetes mellitus without complications; Z79.899 Other long term (current) drug therapy; Z87.891 Personal history of nicotine dependence
CPT/HCPCS: 36415; 70450; 71045; 80053; 81003; 83605; 83880; 85025; 86140; 93005; 96360; 96361; 99284; J7030

== ENCOUNTER 2025-02-23 13:54 | Emergency (ER) | payer OTHER, SELFPAY ==
[2025-02-23] VITALS (8 sets, daily range): BP systolic 158–185; BP diastolic 86–100; PULSE 78–81; RESP 20; TEMP 37.2; O2SAT 93–100
--- NOTE | 2025-02-23 14:00 | ED.GENADULT ---
HPI - General Adult General Chief complaint: Abdominal Pain Stated complaint: abdominal pain Time Seen by Provider: 02/23/25 13:58 Source: patient, EMS and other ([facility] staff) Mode of arrival: EMS Limitations: altered mental status History of Present Illness HPI narrative: 89-year-old female with a history of dementia diabetes mellitus [facility]an[facility]. The patient has been restless since morning. --she complained of chest pain and subsequently complained of abdominal pain. No shortness of breath. No nausea/vomiting. No diarrhea. No fever or chills. Currently patient denies any complaints. The patient is unable to answer questions. She is confused. The nurse spoke to the [facility] staff. This is [facility] at the [facility]. Onset (ago): day(s) (One day) Relieving factors: none Exacerbating factors: none Associated symptoms: denies other symptoms Treatments prior to arrival: none Related Data Home Medications ?Medication ?Instructions ?Recorded ?Confirmed ?Last Taken ?Type rivastigmine 13.3 mg/24 hour 13.3 mg transdermal DAILY 12/18/24 12/18/24 Unknown History transdermal patch acetaminophen 325 mg capsule 650 mg PO Q4H PRN pain 12/27/24 Unknown History cranberry conc-vit 30 ea PO DAILY 12/27/24 Unknown History E-wqbjogo-TYE-bromelain 3,875 mg/30 mL oral liquid (UTI-Stat) Allergies Allergy/AdvReac Type Severity Reaction Status Date / Time Penicillins Allergy Intermediate Hives Verified 02/23/25 14:09 Fish Containing Products Allergy Mild Hives Verified 02/23/25 14:09 shellfish derived Allergy Mild Hives Verified 02/23/25 14:09 iodine Allergy Unknown Hives Verified 02/23/25 14:09 Sulfa (Sulfonamide Allergy Unknown Verified 02/23/25 14:09 Antibiotics) aspirin AdvReac Intermediate Gastrointestinal Verified 02/23/25 14:09 Upset codeine AdvReac Intermediate Nausea Verified 02/23/25 14:09 Review of Systems Review of Systems: ROS unobtainable: Yes unobtainable due to mental status Constitutional: Constitutional: Reports as per HPI and Reports no additional constitutional complaints Eyes: Eyes: Reports as per HPI and Reports no additional eye complaints ENT: Reports system reviewed and no additional complaints, except as documented and Reports as per HPI Cardiovascular: Cardiovascular: Reports as per HPI and Reports no additional cardiovascular complaints Respiratory: Respiratory: Reports as per HPI and Reports no additional respiratory complaints Gastrointestinal: Gastrointestinal: Reports as per HPI and Reports no additional gastrointestinal complaints Genitourinary: Genitourinary: Reports nocturia Musculoskeletal: Musculoskeletal: Reports no additional musculoskeletal complaints and Reports as per HPI Integumentary/Breasts: Skin/Breast: Reports system reviewed and no additional complaints, except as docu and Reports as per HPI Neurologic: Reports system reviewed and no additional complaints, except as documented and Reports as per HPI Psychiatric: Psychiatric: Reports no additional psychiatric complaints, Reports as per HPI and Reports anxiety Endocrine: Endocrine: Reports no additional endocrine complaints and Reports as per HPI Hematologic/Lymphatic: Hematologic/Lymphatic: Reports no additional hematologic/lymphatic complaints and Reports as per HPI Allergic/Immunologic: Allergic/Immunologic: Reports no additional allergic/immunologic complaints and Reports as per HPI [facility] Past Medical History Medical History (Updated 02/23/25 @ 15:32 by Vernon Mckeon MD) BMI 28.0-28.9,adult Eustachian tube dysfunction Dysuria Type 2 diabetes mellitus Surgical History Surgical History Hx of cholecystectomy History of appendectomy Family History Family History Other Family history non-contributory Social History Social History Social History: Lives alone. Has children and grandchildren nearby. Smoking status: Former smoker Tobacco type: cigarettes Alcohol intake: never Substance use: never Substance use type: does not use Gender identity (if verbalized by the patient): Female Spiritual care concerns: No Exam Narrative: Vitals are stable. Const: General: no acute distress Limitations: altered mental status HENMT: Head: normal to inspection Ears: external ears normal Face/Nose/Sinus: Normal external nose present Mouth: Yes Normal oral and palatal mucosa present Throat: posterior oropharynx normal Eyes: Conjunctivae: conjunctivae normal Pupils: Equal, round and reactive pupils present EOM: EOMs intact bilaterally Direct Ophthalmoscopy: no photophobia Neck: Neck: normal visual inspection, no lymphadenopathy and no meningeal signs Chest: Chest palpation & inspection: normal inspection of the chest Resp: Effort & Inspection: normal respiratory effort Auscultation: clear to auscultation bilaterally Cardio: Rate: regular rate Rhythm: regular rhythm GI: GI Palp: Yes Soft to palpation Auscultation: normal bowel sounds Other: No tenderness/rigidity/rebound : General: Yes no CVA tenderness Back/Spine/Pelvis: Back: no CVA tenderness Cervical Spine: collar present Skin: General skin exam: normal color Rashes: no rashes Wounds: no wounds Neuro: General: patient oriented x3, moves all extremities, no meningeal signs, no focal motor deficits and CN's II-XI intact bilaterally Cranial nerves: Yes Nystagmus not present Speech: normal speech Extrem: General: normal to inspection, no clubbing, cyanosis or edema and no pedal edema Psych: Mental Status: mental status grossly normal Affect: normal affect Attitude: cooperative Course Course Emergency Course: Anxiety--gave Xanax 0.25 mg p.o. x1. Urinary tract infection-- Blood work revealed an unremarkable CBC, INR, troponin and CMP except for elevated AST. Unfortunately the reagent which runs lipase is currently nonfunctioning. The patient does not have any epigastric tenderness. Vital Signs Vital signs: Vital Signs Temperature 37.2 C 02/23/25 13:54 Pulse Rate 81 02/23/25 13:54 Respiratory Rate 20 02/23/25 13:54 Blood Pressure 185/86 H 02/23/25 13:54 Pulse Oximetry 99 02/23/25 13:54 Oxygen Delivery Room Air 02/23/25 13:54 Temperature 37.2 C 02/23/25 13:54 Pulse Rate 81 02/23/25 13:54 Respiratory Rate 20 02/23/25 13:54 Blood Pressure 185/86 H 02/23/25 13:54 Pulse Oximetry 99 02/23/25 13:54 Oxygen Delivery Room Air 02/23/25 13:54 [facility] Narrative Medical decision making narrative: Urinary tract infection will treat with Levaquin Anxiety--p.r.n. Xanax Differential Diagnosis Differential Diagnosis: dementia with delirium, Lab Data [facility] Lab Attestation statement: I personally reviewed the patient's lab results. 02/23/25 14:26 02/23/25 14:26 Labs: Lab Results 02/23/25 02/23/25 Range/Units 14:22 14:26 WBC 6.9 (4.8-10.8) K/mm3 RBC 4.47 (4.20-5.40) M/mm3 Hgb 12.7 (11.7-13.8) g/dL Hct 39.1 (35.0-42.0) % MCV 87.5 (78.0-102.0) fL MCH 28.4 (27.0-31.0) pg MCHC 32.5 (32-36) g/dL RDW 12.7 (11.6-14.4) % Plt Count 212 (150-420) K/mm3 MPV 10.7 (9.2-11.8) fl Immature Gran % (Auto) 0.1 H (0.0-0.0) % Neut % (Auto) 69.6 (50.0-70.0) % Lymph % (Auto) 19.1 (18.0-42.0) % [place] % (Auto) 10.5 (2.0-11.0) % Eos % (Auto) 0.0 L (1.0-6.0) % Baso % (Auto) 0.7 (0.0-1.0) % Lymph # (Auto) 1.31 (1.10-4.50) K/mm3 [place] # (Auto) 0.72 (0.10-0.90) K/mm3 Eos # (Auto) 0.00 L (0.02-0.50) K/mm3 Baso # (Auto) 0.05 (0.00-0.10) K/mm3 Abs Immat Gran (auto) 0.01 H (0.00-0.00) K/mm3 Absolute Neuts (auto) 4.77 (1.70-7.20) K/mm3 Absolute Nucleated RBC 0.00 (0.00-0.00) K/mm3 Nucleated RBC % 0.0 (0-0.0) % PT 11.8 (9.50-12.1) Seconds INR 1.1 Sodium 142 (137-145) mmol/L Potassium 3.5 (3.4-5.0) mmol/L Chloride 106 (98-107) mmol/L Carbon Dioxide 26 (22-30) mmol/L Anion Gap 10 (4-12) mmol/L BUN 13 (7-17) mg/dL Creatinine 0.81 (0.7-1.0) mg/dL Estim Creat Clear Calc 32 ml/min Estimated GFR > 60 (59 - ) Glucose 103 (65-110) mg/dL Calculated Osmolality 294 (285-295) mOsm/kg Lactic Acid 1.7 (0.7-2.0) mmol/L Calcium 9.1 (8.4-10.2) mg/dL Total Bilirubin 0.8 (0.2-1.3) mg/dL AST 40 H (14-36) U/L ALT 35 (6-35) U/L Alkaline Phosphatase 88 (38-126) U/L Total Creatine Kinase 73 (30-135) U/L Troponin I < 0.012 (0.000-0.034) ng/mL Total Protein 6.9 (6.3-8.2) g/dL Albumin 4.2 (3.5-5.1) g/dL Lipase Pending Urine Color Light yellow (Yellow) Urine Appearance Sl cloudy A (Clear) Urine pH 8.0 (5.0-8.0) Ur Specific [place] 1.010 (1.010-1.020) Urine Protein Negative (Negative) Urine Glucose (UA) Negative (Negative) Urine Ketones Negative (Negative) Ur Blood (Man) Trace-intact H (Negative) Urine Nitrate Negative (Negative) Urine Bilirubin Negative (Negative) Urine Urobilinogen 0.2 (0.2-1.0) mg/dL Leukocyte Esterase Rfl 3+ H (Negative) [place] Urine RBC 0-2 (0-2) /hpf Urine WBC 31-50 H (0-3) /hpf Urine WBC Clumps Present H (None) /hpf Ur Squamous Epith Cells Few (Few) /hpf Urine Bacteria 4+ (None) /hpf Discharge Plan Discharge Clinical Impression: Anxiety Urinary tract infection Qualifiers: Urinary tract infection type: site unspecified Hematuria presence: without hematuria Qualified Code(s): N39.0 - Urinary tract infection, site not specified Patient Disposition: NH Snf/Asst Living Condition: Stable Instructions: Antibiotic Form, Urinary Tract Infection in Women (DC), Anxiety (ED) Patient Language: Romanian Prescriptions: New levofloxacin 250 mg tablet 250 mg PO DAILY Qty: 4 0RF alprazolam [Xanax] 0.25 mg tablet 0.25 mg PO BID PRN (Reason: anxiety) Qty: 20 0RF No Action acetaminophen 325 mg capsule 650 mg PO Q4H PRN (Reason: pain) UTI-Stat 3,875 mg/30 mL liquid 30 ea PO DAILY Patient Comments: 30 mls daily rivastigmine 13.3 mg/24 hour patch 24 hour 13.3 mg transdermal DAILY Follow-up/Referrals: Carlos Nolasco DO [Primary Care Provider, [facility]] Time of Disposition: 15:35
[2025-02-23 14:32] LABS: Add Urine Microscopic? YES; Appearance Urine Sl Cloudy (Clear); Glucose Urine UA Negative (Negative); Leukocyte Esterase Ur 3+ LEU/UL (Negative); Nitrate Urine Negative (Negative); Specific Grav Ur 1.010 (1.010-1.020)
[2025-02-23 14:33] LABS: Hematocrit 39.1 % (35.0-42.0); Hemoglobin 12.7 g/dL (11.7-13.8); Immature Granulocyte Percent A 0.1 % (0.0-0.0); Lymphocytes Absolute Auto 1.31 K/mm3 (1.10-4.50); Mean Corpuscular HGB Conc 32.5 g/dL (32-36); Mean Corpuscular Hemoglobin 28.4 pg (27.0-31.0); Mean Corpuscular Volume 87.5 fL (78.0-102.0); Nucleated Red Blood Cells Absolute Auto 0.00 K/mm3 (0.00-0.00); Nucleated Red Blood Cells Perc 0.0 % (0-0.0); Platelet Count Result 212 K/mm3 (150-420); Red Blood Count 4.47 M/mm3 (4.20-5.40); White Blood Count 6.9 K/mm3 (4.8-10.8)
[2025-02-23 14:45] LABS: INR 1.1; Prothrombin Time 11.8 Seconds (9.50-12.1)
[2025-02-23 14:56] LABS: Alanine Aminotransferase 35 U/L (6-35); Albumin Level 4.2 g/dL (3.5-5.1); Alkaline Phosphatase 88 U/L (38-126); Anion Gap 10 mmol/L (4-12); Aspartate Amino Transferase 40 U/L (14-36); Bilirubin,Total 0.8 mg/dL (0.2-1.3); Blood Urea Nitrogen 13 mg/dL (7-17); Calcium 9.1 mg/dL (8.4-10.2); Carbon Dioxide 26 mmol/L (22-30); Chloride 106 mmol/L (98-107); Creatine Kinase 73 U/L (30-135); Estimated CRCL calculation 32 ml/min; Estimated Glomerular Filt Rate > 60; Glucose 103 mg/dL (65-110); Osmolality Calculated 294 mOsm/kg (285-295); Potassium 3.5 mmol/L (3.4-5.0); Sodium 142 mmol/L (137-145); Total Protein 6.9 g/dL (6.3-8.2)
[2025-02-23 15:07] LABS: Troponin I < 0.012 ng/mL (0.000-0.034)
--- OUTSIDE RECORDS SUMMARY | 2025-02-23 15:12 | XMS_ITS | Clinical Summary ---
Author Organization [facility] [address] Address [address] [place] [address] Care Team Providers Care Webmethods Consultant Name Role Phone Leora Lobo NP Primary Care Provider [phone] Abdias Corbin DO Unavailable [phone] Tanner Najera MD Unavailable [phone] Allergies Active Allergy Reactions Criticality Noted Date [...] from 04/16/2021:Stage IA(cT1c, cN0(f), cM0, G2, ER+, TN+, HER2-) - Signed by Abdias Corbin DO [...] Comments Blood Pressure 163/94 04/16/2021 11:40 AM NECK BAND OPERATOR Pulse 99 04/16/2021 11:40 AM NECK BAND OPERATOR Temperature 36.7 C (98.1 F) 04/16/2021 11:40 AM NECK BAND OPERATOR Respiratory Rate 16 04/16/2021 11:40 AM NECK BAND OPERATOR Oxygen Saturation 95% 04/16/2021 11:40 AM NECK BAND OPERATOR Inhaled Oxygen Concentration - - Weight 80.3 kg (177 lb 0.5 oz) 04/16/2021 11:40 AM NECK BAND OPERATOR Height 160 cm (5' 3) 04/16/2021 11:40 AM NECK BAND OPERATOR Body Mass Index 31.36 04/16/2021 11:40 AM NECK BAND OPERATOR Plan of Treatment Not on file Medical Devices Implanted Type Area Core Java Engineer Device Identifier Shelf Expiration Date Model / Serial / Lot MagTag [id number] Magseed 18ga 7cm Marker Breast Biopsy - [id number] Implanted:Qty: 1 on 01/25/2021 at [facility] MagTag [id number] 09/16/2024 [id number] / / [id number] Insurance [place] [employer] T[employer] MEDICARE [facility] ADVANTRA AETNA [facility] ADVANTRA Care Teams Webmethods Consultant Relationship Specialty Start Date End Date Leora Lobo NP [address] [place] [address] PCP - General Nurse Practitioner 11/30/20 Abdias Corbin DO [address] [place] [address] MEDICAL ONCOLOGY, [address] [address] Medical Oncologist/Dog Day Care Attendant Hematology and Oncology 04/16/21 Tanner Najera MD [address] [place] [address] MEDICAL ONCOLOGY, [address] [address] Surgeon Surgical Oncology 04/16/21
[2025-02-23] MEDS: ALPRAZolam (*CRX) 0.25 MG TABLET PO (15:21)
[2025-02-23 16:05] LABS: Lipase 67 U/L (23-300)
== END 2025-02-23 15:55 ==
PROVIDERS: Emergency Provider Internal Medicine Critical Care Medicine; PCP Family Medicine
DX: F41.9 Anxiety disorder, unspecified (principal); N39.0 Urinary tract infection, site not specified; E11.9 Type 2 diabetes mellitus without complications; F03.90 Unspecified dementia, unspecified severity, without behavioral disturbance, psychotic disturbance, mood disturbance, and anxiety
CPT/HCPCS: 36415; 80053; 81001; 82550; 83605; 83690; 84484; 85025; 85610; 99284; A9270